=== PATIENT | female | born 1970 | race Hispanic/Latino ===

== ENCOUNTER → 2019-11-25 | Outpatient (CLI) | payer OTHER | END | disposition home or self-care (01) | LOC: RAH 12:00 | PROVIDERS: ATTEND Nurse Practitioner Adult Health | DX: M79.605 Pain in left leg (principal); R22.42 Localized swelling, mass and lump, left lower limb | CPT/HCPCS: 93971 ==

== ENCOUNTER → 2021-07-09 | Outpatient (CLI) | payer OTHER | END | disposition home or self-care (01) | LOC: OIH 13:52 | PROVIDERS: ATTEND Nurse Practitioner Adult Health | DX: Z13.6 Encounter for screening for cardiovascular disorders (principal) | CPT/HCPCS: 75571 ==

== ENCOUNTER 2021-07-16 05:39 | Day surgery (SDC) | payer OTHER ==
[2021-07-12 10:34] LABS: BASOPHILS % (AUTO) 0.8 % (0.0-5.0); LYMPHOCYTES % (AUTO) 25.9 % (21.0-51.0); MEAN CORPUSCULAR HEMOGLOBIN 29.5 pg (27.0-33.0); MEAN CORPUSCULAR HGB CONC 32.4 g/dL (32.0-36.0); MEAN CORPUSCULAR VOLUME 91.1 fL (79-99); MONOCYTES % (AUTO) 5.5 % (3.0-13.0); NEUTROPHILS % (AUTO) 55.5 % (40.0-77.0); PLATELET COUNT (AUTO) 223 K/uL (130-400); RED BLOOD CELL COUNT(AUTO) 4.17 MIL/uL (4.00-5.50); RED CELL DISTRIBUTION WIDTH 12.9 % (11.0-15.5); WHITE BLOOD COUNT (AUTO) 9.2 K/uL (4.8-10.8)
[2021-07-12 10:36] LABS: APPEARANCE,URINE Cloudy (CLEAR); BILIRUBIN,URINE Negative (NEGATIVE); COLOR,URINE Yellow (YELLOW); GLUCOSE, URINE (UA) >=1000 mg/dL (NEGATIVE); KETONES,URINE Negative (NEGATIVE); LEUKOCYTE ESTERASE ,URINE Moderate (NEGATIVE); NITRATE,URINE Negative (NEGATIVE); OCCULT BLOOD,URINE Negative (NEGATIVE); PROTEIN,URINE Negative (NEGATIVE); UROBILINOGEN,URINE 0.2 mg/dL (0.2-1.0)
[2021-07-12 10:46] LABS: CREATININE 0.9 mg/dL (0.5-1.5); POTASSIUM 4.2 mmol/L (3.5-5.1)
[2021-07-12 10:47] LABS: INR 1.04 (0.85-1.15); PROTHROMBIN TIME 11.3 SEC (9.6-11.6)
[2021-07-12 10:48] LABS: PARTIAL THROMBOPLASTIN TIME 26.8 SEC (26.3-35.5)
[2021-07-12 11:07] LABS: BACTERIA,URINE Many /HPF (None Seen); RBC,URINE None Seen /HPF (0-1); SQUAMOUS EPITHELIAL CELL,UR 0-2 /HPF (0-2)
[2021-07-13 10:10] VITALS: BP 114/66
[2021-07-16] VITALS (12 sets, daily range): BP systolic 94–118; BP diastolic 52–83
[~2021-07-16] VITALS: Ht 162.6 cm; Wt 82.5 kg
[~2021-07-16 05:39] MED LIST: AMLO-257 PO; ATOR20TA65 PO; CARV12.511 PO; CLOP75TA32 PO; EMPA1TAB7 PO; ERGO500093 PO; GLIM2TAB30 PO; LEVO100C4 PO; LISI40TA9 PO; MONT-39 PO; NITR0.4T50 SL; OMEP20CA12 PO; SITA100T12 PO
[2021-07-16] MEDS ORDERED: 0.9%NACL 1000ML 1,000 ML IV ONE (06:18)
[2021-07-16] MEDS ORDERED: HEPARIN 10,000 UNIT/10ML (1,000 UNIT/ML) VIAL ONE (07:31)
[2021-07-16] MEDS ORDERED: NITROGLYCERIN 2 MG VIAL IV ONE (07:32)
[2021-07-16] MEDS ORDERED: IOHEXOL-350 50ML VIAL IV ONE (07:32)
[2021-07-16] MEDS ORDERED: IOHEXOL 350 MG/ML 100ML INFUS..BTL IV ONE ×3 (07:32→10:51)
[2021-07-16] MEDS ORDERED: LIDOCAINE HCL 400MG/20ML VIAL ONE (07:33)
[2021-07-16] MEDS ORDERED: SOLU-MEDROL 125MG VIAL ONE (07:55)
[2021-07-16] MEDS ORDERED: DiphenhydrAMINE HCL 50 MG/ML VIAL ONE (07:55)
[2021-07-16] MEDS ORDERED: FAMOTIDINE 20MG TAB ONE (07:59)
[2021-07-16] MEDS ORDERED: 0.9%NACL 1000ML 1,000 ML IV SCH ×2 (08:00→12:00)
[2021-07-16] MEDS ORDERED: FENTANYL CITRATE PF 50 MCG/1 ML 2ML VIAL ONE (08:28)
[2021-07-16] MEDS ORDERED: MIDAZOLAM HCL 1 MG/ML 2ML VIAL ONE (08:28)
[2021-07-16] MEDS ORDERED: FAMOTIDINE 20MG VIAL IV SCH (09:00)
[2021-07-16] MEDS ORDERED: DiphenhydrAMINE HCL 50 MG/ML VIAL IVP SCH (09:00)
[2021-07-16] MEDS ORDERED: SOLU-MEDROL 125MG VIAL IVP SCH (09:00)
[2021-07-16] MEDS ORDERED: BIVALIRUDIN 250 MG/VIAL IV ONE ×2 (09:30→10:50)
[2021-07-16] MEDS ORDERED: EPTIFIBATIDE 75MG/100ML BOTTLE 100 ML IV ONE (09:42)
[2021-07-16] MEDS ORDERED: EPTIFIBATIDE 2 MG/ML 10 ML VIAL IVP ONE ×2 (09:42→10:03)
[2021-07-16] MEDS ORDERED: PRASUGREL HCL 10 MG TABLET ONE (09:46)
[2021-07-16] MEDS ORDERED: PHARMACY COMMUNICATION MISC SCH (10:00)
[2021-07-16] MEDS ORDERED: CILOSTAZOL 100 MG TAB PO SCH (10:30)
[2021-07-16] MEDS ORDERED: DEXTROSE 50%-WATER 50 ML DISP.SYRIN IV PRN (12:00)
[2021-07-16] MEDS ORDERED: SULFAMETHOX-TMP DS 800/160 TAB PO SCH (12:00)
[2021-07-16] MEDS ORDERED: INSULIN HUMULIN R 100 UNIT/ML 3ML SQ SCH (16:30)
== END 2021-07-16 18:05 | disposition home or self-care (01) ==
LOC: DAH 05:39
PROVIDERS: ATTEND Internal Medicine Cardiovascular Disease
DX: I25.119 Atherosclerotic heart disease of native coronary artery with unspecified angina pectoris (principal); I25.82 Chronic total occlusion of coronary artery; R94.31 Abnormal electrocardiogram [ECG] [EKG]; I10 Essential (primary) hypertension; E78.2 Mixed hyperlipidemia; E11.9 Type 2 diabetes mellitus without complications; E03.9 Hypothyroidism, unspecified; Z98.890 Other specified postprocedural states; Z90.49 Acquired absence of other specified parts of digestive tract; Z83.3 Family history of diabetes mellitus; Z82.49 Family history of ischemic heart disease and other diseases of the circulatory system; Z80.9 Family history of malignant neoplasm, unspecified; Z79.899 Other long term (current) drug therapy; Z79.01 Long term (current) use of anticoagulants; Z79.84 Long term (current) use of oral hypoglycemic drugs
CPT/HCPCS: 36415; 71045; 80048; 81001; 82948 ×3; 85025; 85610; 85730; 87077; 87088; 87186; 92920; 93005; 93458; A4215; A4216; A4221; A4222; A4223 ×3; A4606; A4663; C1725 ×3; C1760; C1769 ×2; C1874; C1887 ×3; C1894 ×2; C9600; J0583 ×2; J1200; J1327 ×3; J1644 ×2; J2250; J2930; J3010; J3490 ×3; J7030; Q9965 ×3; Q9967 ×4; 99156; 99157

== ENCOUNTER 2021-08-30 12:30 | Observation (INO) | payer OTHER ==
[~2021-08-30] VITALS: Ht 157.5 cm; Wt 78.6 kg
[~2021-08-30 12:30] MED LIST changes: -CLOP75TA32 PO
[2021-08-30 13:00] LABS: BASOPHILS % (AUTO) 0.5 % (0.0-5.0); EOSINOPHILS % (AUTO) 3.8 % (0.0-8.0); HEMATOCRIT 41.3 % (36-48); LYMPHOCYTES % (AUTO) 21.6 % (21.0-51.0); MEAN CORPUSCULAR HEMOGLOBIN 29.1 pg (27.0-33.0); MEAN CORPUSCULAR HGB CONC 31.2 g/dL (32.0-36.0); MEAN CORPUSCULAR VOLUME 93.2 fL (79-99); MONOCYTES % (AUTO) 4.4 % (3.0-13.0); NEUTROPHILS % (AUTO) 69.4 % (40.0-77.0); PLATELET COUNT (AUTO) 296 K/uL (130-400); RED BLOOD CELL COUNT(AUTO) 4.43 MIL/uL (4.00-5.50)
[2021-08-30 13:11] LABS: CREATININE 1.1 mg/dL (0.5-1.5); POTASSIUM 4.6 mmol/L (3.5-5.1)
[2021-08-30 13:18] LABS: ALBUMIN 3.8 g/dL (3.5-5.0); BILIRUBIN,TOTAL 0.3 mg/dL (0.2-1.0)
[2021-08-30 14:18] LABS: APPEARANCE,URINE Clear (CLEAR); BILIRUBIN,URINE Negative (NEGATIVE); COLOR,URINE Yellow (YELLOW); GLUCOSE, URINE (UA) >=1000 mg/dL (NEGATIVE); KETONES,URINE Negative (NEGATIVE); LEUKOCYTE ESTERASE ,URINE Negative (NEGATIVE); NITRATE,URINE Positive (NEGATIVE); OCCULT BLOOD,URINE Negative (NEGATIVE); PH,URINE 5.5 (5.0-8.0); PROTEIN,URINE Negative (NEGATIVE); UROBILINOGEN,URINE 0.2 mg/dL (0.2-1.0)
[2021-08-30 14:24] LABS: RBC,URINE 0-1 /HPF (0-1)
[2021-08-30 14:25] LABS: BACTERIA,URINE Few /HPF (None Seen); SQUAMOUS EPITHELIAL CELL,UR Rare /HPF (0-2)
[2021-08-30] MEDS ORDERED: CLOP75TA32 PO (14:54)
[2021-08-30] MEDS ORDERED: LEVO750T46 PO (14:54)
[2021-08-30] MEDS ORDERED: ALBU1.252 IH (14:55)
[2021-08-30] MEDS ORDERED: IBUP-2077 PO (14:56)
[2021-08-30] MEDS ORDERED: LEVO100T12 PO (14:57)
[2021-08-30] MEDS ORDERED: LISI40TA9 PO (14:57)
[2021-08-30] MEDS ORDERED: LORA10TA7 PO (14:58)
[2021-08-30] MEDS ORDERED: SITA100T12 PO (14:58)
[2021-08-30] MEDS ORDERED: ACETAMINOPHEN 325 MG TAB PO PRN ×2 (15:00)
[2021-08-30] MEDS ORDERED: HYDRALAZINE 20MG/ML VIAL IV PRN (15:00)
[2021-08-30] MEDS ORDERED: ONDANSETRON 4MG INJ IV PRN (15:00)
[2021-08-30] MEDS ORDERED: ALBUTEROL 0.042% 1.25MG/3ML IH SCH (15:30)
[2021-08-30 16:00] LABS: HEMOGLOBIN A1C 7.1 % (4.0-6.0)
[2021-08-30] MEDS: INSULIN HUMULIN R 100 UNIT/ML 3ML SQ SCH ×2 (16:30→22:00)
[2021-08-30] MEDS: FAMOTIDINE 20MG VIAL IV SCH (21:00)
[2021-08-30] MEDS: MONTELUKAST SODIUM 10 MG TAB PO SCH (21:00)
[2021-08-30] MEDS: CARVEDILOL 12.5 MG TABLET PO SCH (21:00)
[2021-08-30] MEDS: ATORVASTATIN 20 MG TABLET PO SCH (21:00)
[2021-08-31] VITALS (10 sets, daily range): BP systolic 125–141; BP diastolic 69–91
[2021-08-31 03:21] LABS: CHOLESTEROL 109 mg/dL (<200); HDL CHOLESTEROL 41 mg/dL (35-85); LDL DIRECT 56 mg/dL (0-99); TRIGLYCERIDES 101 mg/dL (30-200)
[2021-08-31] MEDS: INSULIN HUMULIN R 100 UNIT/ML 3ML SQ SCH ×4 (05:36→20:49)
[2021-08-31] MEDS: LEVOTHYROXINE 100 MCG TABLET PO SCH (06:03)
[2021-08-31] MEDS: ENOXAPARIN SODIUM 40 MG/0.4 ML SYRINGE SQ SCH (09:00)
[2021-08-31] MEDS ORDERED: CLOPIDOGREL 75MG TAB PO SCH (09:00)
[2021-08-31] MEDS: CARVEDILOL 12.5 MG TABLET PO SCH ×2 (11:46→20:24)
[2021-08-31] MEDS: FAMOTIDINE 20MG VIAL IV SCH ×2 (11:46→20:17)
[2021-08-31] MEDS: LISINOPRIL 40 MG TABLET PO SCH (11:47)
[2021-08-31] MEDS: DiphenhydrAMINE HCL 50 MG/ML VIAL IVP SCH (15:30)
[2021-08-31] MEDS: SOLU-MEDROL 125MG VIAL IVP SCH ×2 (15:30→17:24)
[2021-08-31 16:01] LABS: INR 1.09 (0.85-1.15); PROTHROMBIN TIME 11.8 SEC (9.6-11.6)
[2021-08-31 16:02] LABS: PARTIAL THROMBOPLASTIN TIME 26.5 SEC (26.3-35.5)
[2021-08-31] MEDS ORDERED: IOHEXOL-350 50ML VIAL IV ONE (16:14)
[2021-08-31] MEDS ORDERED: NITROGLYCERIN 2 MG VIAL IV ONE (16:14)
[2021-08-31] MEDS ORDERED: IOHEXOL 350 MG/ML 100ML INFUS..BTL IV ONE (16:14)
[2021-08-31] MEDS ORDERED: LIDOCAINE HCL 400MG/20ML VIAL ONE (16:14)
[2021-08-31] MEDS ORDERED: BIVALIRUDIN 250 MG/VIAL IV ONE (16:42)
[2021-08-31] MEDS ORDERED: FENTANYL CITRATE PF 50 MCG/1 ML 2ML VIAL ONE (17:01)
[2021-08-31] MEDS ORDERED: MIDAZOLAM HCL 1 MG/ML 2ML VIAL ONE (17:01)
[2021-08-31] MEDS ORDERED: TICAGRELOR 90 MG TABLET ONE (17:18)
[2021-08-31] MEDS ORDERED: 0.9%NACL 1000ML 1,000 ML IV SCH (18:00)
[2021-08-31] MEDS: MONTELUKAST SODIUM 10 MG TAB PO SCH (20:17)
[2021-08-31] MEDS: ATORVASTATIN 20 MG TABLET PO SCH (20:17)
[2021-08-31] MEDS: TICAGRELOR 90 MG TABLET PO SCH (20:25)
[2021-09-01 03:48] VITALS: BP 137/83
[2021-09-01] MEDS: LEVOTHYROXINE 100 MCG TABLET PO SCH (06:34)
[2021-09-01] MEDS: INSULIN HUMULIN R 100 UNIT/ML 3ML SQ SCH (07:30)
[2021-09-01 08:06] VITALS: BP 139/91
[2021-09-01] MEDS: FAMOTIDINE 20MG VIAL IV SCH (09:45)
[2021-09-01] MEDS: LISINOPRIL 40 MG TABLET PO SCH (09:45)
[2021-09-01] MEDS: CARVEDILOL 12.5 MG TABLET PO SCH (09:46)
[2021-09-01] MEDS: TICAGRELOR 90 MG TABLET PO SCH (09:46)
[2021-09-01] MEDS: ENOXAPARIN SODIUM 40 MG/0.4 ML SYRINGE SQ SCH (09:47)
[2021-09-01 10:04] LABS: BASOPHILS % (AUTO) 0.2 % (0.0-5.0); EOSINOPHILS % (AUTO) 2.7 % (0.0-8.0); HEMATOCRIT 38.4 % (36-48); LYMPHOCYTES % (AUTO) 9.7 % (21.0-51.0); MEAN CORPUSCULAR HEMOGLOBIN 29.1 pg (27.0-33.0); MEAN CORPUSCULAR HGB CONC 32.6 g/dL (32.0-36.0); MEAN CORPUSCULAR VOLUME 89.3 fL (79-99); MONOCYTES % (AUTO) 5.5 % (3.0-13.0); NEUTROPHILS % (AUTO) 81.5 % (40.0-77.0); PLATELET COUNT (AUTO) 261 K/uL (130-400); WHITE BLOOD COUNT (AUTO) 11.2 K/uL (4.8-10.8)
[2021-09-01 10:11] LABS: CREATININE 1.1 mg/dL (0.5-1.5); POTASSIUM 4.2 mmol/L (3.5-5.1)
[2021-09-01 10:37] VITALS: BP 129/76
[2021-09-01] MEDS ORDERED: NITR100C4 PO (11:39)
[2021-09-01] MEDS ORDERED: ATOR40TA71 PO (11:47)
[2021-09-01] MEDS ORDERED: TICA90TA PO (11:47)
[2021-09-01] MEDS ORDERED: NITROFURANTOIN MONOHYD/M-CRYST 100 MG CAPSULE PO SCH (12:00)
[2021-09-01] MEDS: DiphenhydrAMINE HCL 50 MG/ML VIAL IVP SCH (12:30)
== END 2021-09-01 14:00 | disposition home or self-care (01) ==
LOC: EDH 12:30 → INTOOBSV 14:58 → EDHIP 14:58 → 4AH 08-31 02:41
PROVIDERS: ADMIT Internal Medicine; ATTEND Internal Medicine
DX: R07.89 Other chest pain (principal); Z20.822 Contact with and (suspected) exposure to COVID-19; I25.10 Atherosclerotic heart disease of native coronary artery without angina pectoris; I10 Essential (primary) hypertension; E11.9 Type 2 diabetes mellitus without complications; E03.9 Hypothyroidism, unspecified; E78.2 Mixed hyperlipidemia; E66.9 Obesity, unspecified; I25.119 Atherosclerotic heart disease of native coronary artery with unspecified angina pectoris; I25.82 Chronic total occlusion of coronary artery; J45.909 Unspecified asthma, uncomplicated; Z68.30 Body mass index [BMI] 30.0-30.9, adult; Z88.0 Allergy status to penicillin; Z88.6 Allergy status to analgesic agent; Z98.61 Coronary angioplasty status; Z79.899 Other long term (current) drug therapy; Z98.890 Other specified postprocedural states
CPT/HCPCS: 36415 ×3; 71045; 80048; 80053; 80061; 81001; 82948 ×8; 83036; 84145; 84443; 84484 ×5; 85025 ×2; 85610; 85730; 87077; 87088; 87186; 87635; 93005 ×2; 93458; 94664; 96372 ×2; 96374; 96375; 96376 ×2; 99285; C1760; C1894 ×2; G0378 ×24; J1200 ×2; J1644; J1650; J2250; J2930; J3010; J3490 ×6; Q9965 ×2; Q9967 ×2; 99156; 99157; J0583

== ENCOUNTER 2023-01-01 08:03 | Emergency (ER) | payer OTHER ==
[~2023-01-01] VITALS: Ht 162.6 cm; Wt 77.1 kg
[~2023-01-01 08:03] MED LIST changes: +ALBU1.252 IH; -ATOR20TA65 PO; +ATOR40TA71 PO; +LEVO100T12 PO; +LORA10TA7 PO; +NITR100C4 PO; +TICA90TA PO
[2023-01-01 08:35] LABS: BASOPHILS % (AUTO) 0.7 % (0.0-5.0); EOSINOPHILS % (AUTO) 9.2 % (0.0-8.0); HEMATOCRIT 38.9 % (36-48); LYMPHOCYTES % (AUTO) 27.5 % (21.0-51.0); MEAN CORPUSCULAR HEMOGLOBIN 28.3 pg (27.0-33.0); MEAN CORPUSCULAR HGB CONC 31.1 g/dL (32.0-36.0); MEAN CORPUSCULAR VOLUME 90.9 fL (79-99); MONOCYTES % (AUTO) 5.8 % (3.0-13.0); NEUTROPHILS % (AUTO) 56.6 % (40.0-77.0); PLATELET COUNT (AUTO) 248 K/uL (130-400); RED BLOOD CELL COUNT(AUTO) 4.28 MIL/uL (4.00-5.50); RED CELL DISTRIBUTION WIDTH 12.7 % (11.0-15.5); WHITE BLOOD COUNT (AUTO) 8.9 K/uL (4.8-10.8)
[2023-01-01 08:50] LABS: POTASSIUM 3.9 mmol/L (3.5-5.1)
[2023-01-01 08:52] LABS: TOTAL PROTEIN, SERUM 8.1 g/dL (6.0-8.3)
[2023-01-01 08:58] LABS: APPEARANCE,URINE CLEAR (CLEAR); BILIRUBIN,URINE NEGATIVE (NEGATIVE); COLOR,URINE LIGHT-YELLOW (YELLOW); GLUCOSE, URINE (UA) >=1000 mg/dL (NEGATIVE); KETONES,URINE NEGATIVE (NEGATIVE); LEUKOCYTE ESTERASE ,URINE 250 Leu/uL (NEGATIVE); NITRATE,URINE NEGATIVE (NEGATIVE); OCCULT BLOOD,URINE NEGATIVE (NEGATIVE); PH,URINE 6.5 (5.0-8.0); PROTEIN,URINE NEGATIVE (NEGATIVE); UROBILINOGEN,URINE 0.2 mg/dL (0.2-1.0)
[2023-01-01 09:00] LABS: BACTERIA,URINE RARE /HPF (None Seen); MUCUS,URINE RARE LPF (None Seen); RBC,URINE 0-1 /HPF (0-1); SQUAMOUS EPITHELIAL CELL,UR RARE /HPF (0-2)
[2023-01-01] MEDS ORDERED: IOHEXOL-350 75 ML VIAL IV ONE (11:36)
[2023-01-01] MEDS ORDERED: SULF1TAB42 PO (13:11)
[2023-01-01] MEDS ORDERED: PANT40GR PO (13:11)
[2023-01-01 13:40] VITALS: BP 150/83
== END 2023-01-01 13:43 | disposition home or self-care (01) ==
LOC: EDH 08:03
DX: N39.0 Urinary tract infection, site not specified (principal); E11.9 Type 2 diabetes mellitus without complications; E78.00 Pure hypercholesterolemia, unspecified; I10 Essential (primary) hypertension; E03.9 Hypothyroidism, unspecified; Z79.84 Long term (current) use of oral hypoglycemic drugs; Z79.899 Other long term (current) drug therapy; Z82.49 Family history of ischemic heart disease and other diseases of the circulatory system; Z88.0 Allergy status to penicillin; Z88.6 Allergy status to analgesic agent
CPT/HCPCS: 99285; 74177; 84484; 80053; 85025; 81001; 36415; 93005; Q9967

== ENCOUNTER 2023-02-23 14:21 | Emergency (ER) | payer OTHER, BC ==
[~2023-02-23] VITALS: Ht 162.6 cm; Wt 77.1 kg
[~2023-02-23 14:21] MED LIST changes: +PANT40GR PO; +SULF1TAB42 PO
[2023-02-23 14:44] LABS: BASOPHILS % (AUTO) 1.1 % (0.0-5.0); EOSINOPHILS % (AUTO) 8.1 % (0.0-8.0); HEMATOCRIT 39.1 % (36-48); LYMPHOCYTES % (AUTO) 30.9 % (21.0-51.0); MEAN CORPUSCULAR HEMOGLOBIN 27.3 pg (27.0-33.0); MEAN CORPUSCULAR HGB CONC 30.7 g/dL (32.0-36.0); MEAN CORPUSCULAR VOLUME 88.9 fL (79-99); MONOCYTES % (AUTO) 4.7 % (3.0-13.0); NEUTROPHILS % (AUTO) 54.9 % (40.0-77.0); PLATELET COUNT (AUTO) 235 K/uL (130-400); RED CELL DISTRIBUTION WIDTH 13.5 % (11.0-15.5)
[2023-02-23 14:58] LABS: CREATININE 1.1 mg/dL (0.5-1.5); POTASSIUM 4.4 mmol/L (3.5-5.1)
[2023-02-23 15:07] LABS: ALBUMIN 4.1 g/dL (3.5-5.0); TOTAL PROTEIN, SERUM 7.9 g/dL (6.0-8.3)
[2023-02-23 17:44] VITALS: BP 132/68
== END 2023-02-23 17:45 | disposition home or self-care (01) ==
LOC: EDH 14:21
DX: R07.89 Other chest pain (principal); I10 Essential (primary) hypertension; E03.9 Hypothyroidism, unspecified; E11.9 Type 2 diabetes mellitus without complications; E78.00 Pure hypercholesterolemia, unspecified; Z79.84 Long term (current) use of oral hypoglycemic drugs; Z79.899 Other long term (current) drug therapy; Z95.5 Presence of coronary angioplasty implant and graft; Z88.0 Allergy status to penicillin; Z88.6 Allergy status to analgesic agent; Z88.8 Allergy status to other drugs, medicaments and biological substances
CPT/HCPCS: 36415; 71045; 80053; 84484; 85025; 93005

== ENCOUNTER 2023-11-23 20:59 | Emergency (ER) | payer BC, OTHER ==
[~2023-11-23] VITALS: Ht 162.6 cm; Wt 75.7 kg
[2023-11-23 23:04] LABS: RAPID GROUP A STREP negative (NEGATIVE)
[2023-11-23 23:10] LABS: SARS-CoV-2, RNA, NAAT NEGATIVE SARS CoV-2 (NEGATIVE)
[2023-11-23 23:14] LABS: INFLUENZA TYPE A Negative For Type A (NEGATIVE); INFLUENZA TYPE B Negative For Type B (NEGATIVE)
[2023-11-23 23:55] LABS: ALBUMIN 3.8 g/dL (3.5-5.0); BASOPHILS # (AUTO) 0.08 K/uL (0.00-0.20); BASOPHILS % (AUTO) 0.8 % (0.0-5.0); BILIRUBIN,TOTAL 0.3 mg/dL (0.2-1.0); CREATININE 1.4 mg/dL (0.5-1.5); EOSINOPHILS % (AUTO) 5.3 % (0.0-8.0); HEMATOCRIT 35.8 % (36-48); IMMATURE GRANULOCYTE ABSOLUTE 0.03 K/uL (0-1); LYMPHOCYTES # (AUTO) 2.5 K/uL (1.0-4.8); LYMPHOCYTES % (AUTO) 26.7 % (21.0-51.0); MEAN CORPUSCULAR HEMOGLOBIN 28.5 pg (27.0-33.0); MEAN CORPUSCULAR HGB CONC 32.7 g/dL (32.0-36.0); MEAN CORPUSCULAR VOLUME 87.1 fL (79-99); MONOCYTES # (AUTO) 0.7 K/uL (0.1-1.0); MONOCYTES % (AUTO) 7.7 % (3.0-13.0); NEUTROPHILS # (AUTO) 5.6 K/uL (1.8-7.7); NEUTROPHILS % (AUTO) 59.2 % (40.0-77.0); PLATELET COUNT (AUTO) 305 K/uL (130-400); POTASSIUM 3.9 mmol/L (3.5-5.1); RED BLOOD CELL COUNT(AUTO) 4.11 MIL/uL (4.00-5.50); RED CELL DISTRIBUTION WIDTH 14.1 % (11.0-15.5); TOTAL PROTEIN, SERUM 7.3 g/dL (6.0-8.3); WHITE BLOOD COUNT (AUTO) 9.5 K/uL (4.8-10.8)
[2023-11-24] MEDS: 0.9%NACL 1000ML 1,000 ML IV SCH (00:01)
[2023-11-24] MEDS: FAMOTIDINE 20MG VIAL IV ONE (00:01)
[2023-11-24] MEDS: ONDANSETRON 4MG INJ IVP ONE (00:01)
[2023-11-24] MEDS: DEXTROSE 50%-WATER 50 ML DISP.SYRIN IV ONE (00:06)
[2023-11-24] MEDS ORDERED: IOHEXOL-350 75 ML VIAL IV ONE (00:48)
[2023-11-24 01:16] VITALS: BP 127/96; PULSE 80; RESP 18; O2SAT 99
[2023-11-24] MEDS ORDERED: ACET-66 PO (01:29)
[2023-11-24] MEDS ORDERED: LACT1CAP81 PO (01:29)
[2023-11-24] MEDS ORDERED: ONDA4TAB10 SL (01:29)
[2023-11-24] MEDS ORDERED: FAMO-136 PO (01:29)
== END 2023-11-24 01:44 | disposition home or self-care (01) ==
LOC: EDH 20:59
DX: K52.9 Noninfective gastroenteritis and colitis, unspecified (principal); I10 Essential (primary) hypertension; E11.9 Type 2 diabetes mellitus without complications; E78.00 Pure hypercholesterolemia, unspecified; Z20.822 Contact with and (suspected) exposure to COVID-19; Z79.899 Other long term (current) drug therapy; Z98.890 Other specified postprocedural states; Z90.710 Acquired absence of both cervix and uterus; Z88.0 Allergy status to penicillin; Z88.2 Allergy status to sulfonamides; Z88.5 Allergy status to narcotic agent; Z88.8 Allergy status to other drugs, medicaments and biological substances
CPT/HCPCS: 99284; 74177; 87635; 84484; 80053; 83690; 85025; 87880; 87804 ×2; 82948; 36415; 93005; 96374; 96375; J3490; J2405; J7070; Q9967

== ENCOUNTER 2024-02-28 13:46 | Emergency (ER) | payer BC, OTHER ==
[~2024-02-28] VITALS: Ht 162.6 cm; Wt 72.6 kg
[~2024-02-28 13:46] MED LIST changes: +ACET-66 PO; +FAMO-136 PO; +LACT1CAP81 PO; +ONDA-243 SL
[2024-02-28] MEDS: 0.9%NACL 1000ML 1,000 ML IV ONE (14:35)
[2024-02-28] MEDS: SOLU-MEDROL 125MG VIAL IVP ONE (14:35)
[2024-02-28] MEDS: DiphenhydrAMINE HCL 50 MG/ML VIAL IV ONE (14:35)
[2024-02-28] MEDS: FAMOTIDINE 20MG VIAL IV ONE (14:35)
[2024-02-28] MEDS ORDERED: DIPH50 PO (16:15)
[2024-02-28 16:36] VITALS: BP 131/61; PULSE 72; RESP 20; O2SAT 99
== END 2024-02-28 16:36 | disposition home or self-care (01) ==
LOC: EDH 13:46
DX: T78.40XA Allergy, unspecified, initial encounter (principal); E11.9 Type 2 diabetes mellitus without complications; E78.00 Pure hypercholesterolemia, unspecified; I10 Essential (primary) hypertension; E03.9 Hypothyroidism, unspecified; Z90.49 Acquired absence of other specified parts of digestive tract; X58.XXXA Exposure to other specified factors, initial encounter
CPT/HCPCS: 99284; 96374; 96375; J1200; J3490; J7030; J2919

== ENCOUNTER → 2024-06-21 | Outpatient (CLI) | payer OTHER ==
[~2024-06-21] MED LIST changes: +DIPH50 PO
[2024-06-21 12:22] LABS: POTASSIUM 4.3 mmol/L (3.5-5.1)
== END | disposition home or self-care (01) ==
LOC: LAB 09:11
PROVIDERS: ATTEND Internal Medicine Cardiovascular Disease
DX: E78.5 Hyperlipidemia, unspecified (principal)
CPT/HCPCS: 36415; 80048; 80061

== ENCOUNTER 2024-08-11 10:49 | Emergency (ER) | payer OTHER ==
[~2024-08-11] VITALS: Ht 160 cm; Wt 68.0 kg
--- NOTE | 2024-08-11 11:16 | ERN ---
General Chief Complaint: Chest Pain Stated Complaint: CHEST PAIN Time Seen by MD: 10:50 Time Seen by Midlevel: 10:50 Source: patient History of Present Illness Initial Comments 54-year-old female presents to the ED due to chest pain onset three days. She was referred by PCP. Patient reports pain comes and goes, has shortness of breat h when the pain occurs. Denies any fever, cough, chest injuries or further associated symptoms. Patient has history of stent placement, DM, HTN. 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 Allergies: Coded Allergies: Penicillins (Unverified Allergy, Unknown, 07/13/21) aspirin (Verified Allergy, Unknown, 07/12/21) coconut (Unverified Allergy, Unknown, 07/13/21) shrimp (Unverified Allergy, Unknown, 07/13/21) Home Meds Active Scripts Nitrofurantoin Macrocrystal (Nitrofurantoin) 100 Mg Capsule, 100 MG PO BID for 7 Days, #14 CAP Prov:JOSE ANTONIO TERRY 08/11/24 Diphenhydramine HCl (Benadryl) 50 Mg Cap, 25 MG PO TID PRN for ALLERGIC REACTION for 10 Days, #30 CAP 0 Refills Prov:FABIO ALAMO MD 02/28/24 Lactobacillus Combination No.4 (Probiotic) 3 Billion Cell Capsule, 1 EACH PO DAILY, #14 CAP Prov:DARLIN FREED MD 11/24/23 Famotidine (Pepcid) 20 Mg Tablet, 20 MG PO Q12H, #28 TAB Prov:DARLIN FREED MD 11/24/23 Ondansetron (Ondansetron Odt) 4 Mg Tab.rapdis, 4 MG SL Q4HPRN PRN for nausea/vomiting, #10 TAB Prov:DARLIN FREED MD 11/24/23 Acetaminophen (Acetaminophen) 500 Mg Tablet, 1000 MG PO Q6HPRN PRN for fever/pain, #24 TAB Prov:DARLIN FREED MD 11/24/23 Sulfamethoxazole/Trimethoprim (Bactrim Ds Tablet) 1 Each Tablet, 1 TAB PO BID for 5 Days, #10 TAB 0 Refills Prov:CHELSEA MONTENEGRO MD 01/01/23 Pantoprazole Sodium (Pantoprazole Sodium) 40 Mg , 40 MG PO DAILYBKFST, #15 PACK Prov:CHELSEA MONTENEGRO MD 01/01/23 Atorvastatin Calcium (Atorvastatin Calcium) 40 Mg Tablet, 40 MG PO HS, #30 TAB 1 Refill Prov:GALINDO RHODES MD 09/01/21 Ticagrelor (Brilinta) 90 Mg Tablet, 90 MG PO BID, #60 TAB 2 Refills Prov:GALINDO RHODES MD 09/01/21 Nitrofurantoin Monohyd/M-Cryst (Macrobid 100 mg Capsule) 100 Mg Capsule, 100 MG PO BID for 5 Days, #10 CAP 0 Refills Prov:GALINDO RHODES MD 09/01/21 Reported Medications Loratadine (Loratadine) 10 Mg Tablet, 10 MG PO DAILY, TAB 08/30/21 Sitagliptin Phosphate (Januvia) 100 Mg Tablet, 100 MG PO DAILY, TAB 08/30/21 Lisinopril (Lisinopril) 40 Mg Tablet, 40 MG PO DAILY, TAB 08/30/21 Levothyroxine Sodium (Levothyroxine Sodium) 100 Mcg Tablet, 100 MCG PO DAILY, TAB 08/30/21 Albuterol Sulfate (Albuterol Sulfate) 1.25 Mg/3 Ml Vial.neb, 108 MCG IH Q4PRN, INH 08/30/21 Empagliflozin/Metformin HCl (Synjardy 12.5-1,000 mg Tablet) 1 Each Tablet, 1 EACH PO BID, TAB 07/13/21 Nitroglycerin (Nitroglycerin) 0.4 Mg Tab.subl, 0.4 MG SL AD PRN for CHEST PAIN, TAB.SL 07/13/21 Amlodipine Besylate (Amlodipine Besylate) 5 Mg Tablet, 5 MG PO DAILY, TAB 07/13/21 Levothyroxine Sodium (Levothyroxine) 100 Mcg Capsule, 100 MCG PO DAILY, CAP 07/13/21 Ergocalciferol (Vitamin D2) (Vitamin D2) 1,250 Mcg Capsule, 1250 MCG PO QWEEK, CAP 07/13/21 Sitagliptin Phosphate (Januvia) 100 Mg Tablet, 100 MG PO DAILY, TAB 07/13/21 Carvedilol (Carvedilol) 12.5 Mg Tablet, 12.5 MG PO BID, TAB 07/13/21 Montelukast Sodium (Montelukast Sodium) 10 Mg Tablet, 10 MG PO HS, TAB 07/13/21 Glimepiride (Glimepiride) 2 Mg Tablet, 2 MG PO BID, TAB 07/13/21 Lisinopril (Lisinopril) 40 Mg Tablet, 40 MG PO DAILY, TAB 07/13/21 Omeprazole (Omeprazole) 20 Mg Capsule.dr, 20 MG PO AD PRN for HEARTBURN, CAP 07/13/21 Past Medical History Past Medical History: Diabetes-Type II, High Cholesterol, Hypertension, Hypothyroid Past Surgical History: Hysterectomy Surgical History Other: HEART STENT Family History Family History: HTN Social History Social History: Negative, Lives with family Female( History) History: Not Applicable ROS Dictation Constitutional: Negative for fever,chills, and weight loss Eyes: Negative for injury, pain,redness, and discharge ENT: Negative for injury,pain or swelling Cardiovascular: Positive for chest pain Negative for palpitations, and edema Respiratory: Positive for shortness of breath Negative for cough, and wheezing, Abdomen/GI: Negative for abdominal pain, nausea, vomiting, diarrhea, and constipation Back: Negative for injury and pain : Negative for painful urination, bleeding or discharge MS/Extremity: Negative for injury and deformity Skin: Negative for rash, and discoloration Neuro: Negative for headache, weakness, numbness, tingling, and seizure Psych: Negative for suicide ideation, homicidal ideation, and hallucinations Physical Exam Physical Exam Dictation General: awake, alert, no acute distress Head/Face: Normocephalic, atraumatic Eyes: PERRL, EOMI, normal conjunctiva ENT: oral cavity clear, oral mucosa moist Neck: Normal range of motion Cardiovascular: RRR, normal S1/S2 Respiratory: CTAB, no respiratory distress, no rales or wheezes Abdomen: Soft, non-tender, non-distended, no guarding or rebound. Skin: Warm, dry, normal turgor, no rash MS/Extremity: Pulses equal, no cyanosis, neurovascular intact, FROM Neuro: COAx4, GCS 15, no neurological deficits, normal gait, Psych: Normal behavior, mood, and affect normal Results Laboratory and Microbiology Lab and Micro Result Laboratory Tests Test 08/11/24 11:08 08/11/24 11:30 08/11/24 12:48 08/11/24 13:21 White Blood Count 8.5 K/uL (4.8-10.8) Red Blood Count 4.34 MIL/uL (4.00-5.50) Hemoglobin 12.6 g/dL (12.0-16.0) Hematocrit 39.8 % (36-48) Mean Corpuscular Volume 91.7 fL (79-99) Mean Corpuscular Hemoglobin 29.0 pg (27.0-33.0) Mean Corpuscular Hemoglobin Concent 31.7 g/dL (32.0-36.0) L Red Cell Distribution Width 12.3 % (11.0-15.5) Platelet Count 243 K/uL (130-400) Mean Platelet Volume 11.0 fL (7.5-10.5) H Immature Granulocyte % (Auto) 0.2 % (0-1) Neutrophils (%) (Auto) 53.8 % (40.0-77.0) Lymphocytes (%) (Auto) 32.5 % (21.0-51.0) Monocytes (%) (Auto) 5.5 % (3.0-13.0) Eosinophils (%) (Auto) 7.2 % (0.0-8.0) Basophils (%) (Auto) 0.8 % (0.0-5.0) Neutrophils # (Auto) 4.6 K/uL (1.8-7.7) Lymphocytes # (Auto) 2.8 K/uL (1.0-4.8) Monocytes # (Auto) 0.5 K/uL (0.1-1.0) Eosinophils # (Auto) 0.61 K/uL (0.00-0.70) Basophils # (Auto) 0.07 K/uL (0.00-0.20) Absolute Immature Granulocyte (auto 0.02 K/uL (0-1) Nucleated Red Blood Cells 0.0 % (0.0-0.19) Sodium Level 140 mmol/L (136-145) Potassium Level 4.6 mmol/L (3.5-5.1) Chloride Level 105 mmol/L (101-111) Carbon Dioxide Level 32 mmol/L (21-32) Blood Urea Nitrogen 19 mg/dL (7-18) H Creatinine 0.9 mg/dL (0.5-1.0) Glomerular Filtration Rate Calc 76 mL/min (>90) Random Glucose 131 mg/dL (70-105) H Total Calcium 9.1 mg/dL (8.5-10.1) Total Creatine Kinase 134 U/L (21-232) B-Type Natriuretic Peptide 59 pg/mL (0-100) Troponin I < 0.05 ng/mL (0.00-0.05) Urine Color LIGHT-YELLOW (YELLOW) Urine Appearance CLOUDY (CLEAR) H Urine pH 5.5 (5.0-8.0) Urine Specific [place] 1.019 (1.001-1.031) Urine Protein NEGATIVE mg/dL (NEGATIVE) Urine Glucose (UA) >=1000 mg/dL (NEGATIVE) H Urine Ketones NEGATIVE mg/dL (NEGATIVE) Urine Occult Blood NEGATIVE (NEGATIVE) Urine Nitrate NEGATIVE (NEGATIVE) Urine Bilirubin NEGATIVE mg/dL (NEGATIVE) Urine Urobilinogen 0.2 mg/dL (0.2-1.0) Urine Leukocyte Esterase 250 Vikki/uL (NEGATIVE) H Urine RBC 2-5 /HPF (0-1) H Urine WBC 51-100 /HPF (0-1) H Urine Bacteria RARE /HPF (None Seen) Troponin I High Sensitivity 4 ng/L (4-50) Labs Reviewed?: Yes EKG/XRAY/US/CT/MRI EKG Comment Date: 08/11/2024 Time: 10:54 a.m. Rate: 57 EKG interpretation: Sinus rhythm, no STEMI, RBBB and LAFB Reviewed by ED Attending X-RAY Comment REASON: CHEST PAIN ORDERING PHYSICIAN: SHOSHNAA PHAM MD PROCEDURE: CXR1VW - CHEST 1VW CHEST 1VW HISTORY: Chest pain COMPARISON: 02/23/2023 FINDINGS: A frontal projection of the chest was obtained. No acute pulmonary infiltrates is seen. The heart is normal in size. Prominent interstitial markings are seen. No evidence of aortic calcification is seen. IMPRESSION: 1. No acute pulmonary infiltrate is seen. MDM MDM: Differential diagnosis: Atypical chest pain, OR, musculoskeletal chest pain Rationale: 54-year-old female presents to the ED due to chest pain onset three days. She was referred by PCP. Patient reports pain comes and goes, has shortne ss of breath when the pain occurs. Denies any fever, cough, chest injuries or further associated symptoms. Patient has history of stent placement, DM, HTN. 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 Negative troponin, EKG within normal limits. Chest ray indicates no acute pulmonary infiltrates. UA indicates a urinary tract infection. Patient received antibiotics in the ED and prescribed antibiotics for outpatient treatment. On re-examination patient's chest pain and shortness of breath have resolved. Heart score of two low risk. Patient educated on findings and diagnosis. Advised to follow up with PCP. Return to the ED if any worsening symptoms. Patient verbalized understanding. Patient stable for discharge. There are no social concerns with this patient. I independently interpreted the test that were performed, results were reviewed by me and considered findings on radiology if ordered. Medical management and examination interpretation discussions were had by me with other qualified healthcare professionals as indicated for the patient's care. ED Course Orders Procedure Category Date Status Time Vital Signs Per CPOE 08/11/24 Transmitted Routine 10:50 B-Type Natriuretic LAB 08/11/24 Complete Peptide 10:50 Chest 1vw RAD 08/11/24 Resulted 10:50 12 Lead Ekg Tracing- EKG 08/11/24 Resulted Technical 10:50 Oxygen By Nc/Pulse Ox CPOE 08/11/24 Transmitted 10:50 Maintain Iv CPOE 08/11/24 Transmitted 10:50 Iv Insertion CPOE 08/11/24 Transmitted 10:50 Cardiac Monitoring CPOE 08/11/24 Transmitted 10:50 Pulse Oximetry With CPOE 08/11/24 Transmitted Vs And Prn 10:50 Cbc With Differential LAB 08/11/24 Complete 10:50 Activity: Br W/Brp CPOE 08/11/24 Transmitted With Assist 10:50 Creatine Kinase, Total LAB 08/11/24 Complete 10:50 Urinalysis Profile LAB 08/11/24 Complete 10:50 Troponin Poc Order LAB 08/11/24 Complete Only 10:50 Bedside Troponin-I LAB.ER 08/11/24 Complete (Poc) 10:50 Basic Metabolic Panel LAB 08/11/24 Complete 10:50 Troponin I High LAB 08/11/24 Complete Sensitivity 13:01 Acetaminophen 500mg PHA 08/11/24 Complete Tab (Tylenol 500mg T 13:30 Culture Urine PILY 08/11/24 Complete 13:38 Nitrofurantoin PHA 08/11/24 Complete Monohyd/M-Cryst 14:30 Current Medications Medications (Trade) Dose Ordered Sig/Charito Route PRN Reason Start Time Stop Time Status Last Admin Dose Admin Acetaminophen (TYLenol 500MG TAB) 1,000 mg ONCE ONCE PO 08/11/24 13:30 08/11/24 13:31 DC 08/11/24 13:15 Nitrofurantoin Macrocrystals (Macrobid) 100 mg ONCE ONCE PO 08/11/24 14:30 08/11/24 14:28 DC 08/11/24 14:18 Vital Signs Date Time Temp Pulse Resp B/P (MAP) Pulse Ox O2 Delivery O2 Flow Rate FiO2 08/11/24 14:25 97.5 58 14 144/70 100 Room Air* 0 21 08/11/24 13:21 97.5 55 12 150/79 100 Room Air* 0 21 08/11/24 10:49 98.1 61 16 155/88 100 Room Air 0 HEART Score Response (Comments) Value History: Low suspicion (0) 0 EKG: Normal 0 Age: 45-65yrs (+1) 1 Risk Factors: 1-2 risk factors (+1) 1 Initial Troponin: Normal limit (0) 0 HEART Score Risk: Low Risk for MACE (1-3) Total 2 DX & DISP Disposition: Discharge Departure Impression: Primary Impression: UTI (urinary tract infection) Additional Impression: Atypical chest pain Condition: Stable Scripts Nitrofurantoin Macrocrystal (Nitrofurantoin) 100 Mg Capsule 100 MG PO BID for 7 Days, #14 CAP Prov: JOSE ANTONIO TERRY 08/11/24 Additional Instructions: Discharge home. Rest. Follow up with primary care in 24 hours. Return to the ER for any acute changes or worsening symptoms. If any medications were prescribed take as directed. Okay to continue home medications unless otherwise discussed during your visit in the emergency room today. Patient was also advised to follow-up with primary care physician in 1 to 2 days for continued monitoring. Referrals: [facility] [employer]APE DESIGNER (PCP) I performed this substantive portion of this visit. I have reviewed and personally made and approve the management plan that is documented in the note by myself or the [facility]. I acknowledge full responsibility for the patient's management plan. JOSE ANTONIO TERRY Aug 11, 2024 11:16 SHOSHANA PHAM MD Aug 13, 2024 12:45
[2024-08-11 11:20] LABS: BASOPHILS # (AUTO) 0.07 K/uL (0.00-0.20); BASOPHILS % (AUTO) 0.8 % (0.0-5.0); EOSINOPHILS # (AUTO) 0.61 K/uL (0.00-0.70); EOSINOPHILS % (AUTO) 7.2 % (0.0-8.0); HEMATOCRIT 39.8 % (36-48); IMMATURE GRANULOCYTE ABSOLUTE 0.02 K/uL (0-1); LYMPHOCYTES # (AUTO) 2.8 K/uL (1.0-4.8); LYMPHOCYTES % (AUTO) 32.5 % (21.0-51.0); MEAN CORPUSCULAR HGB CONC 31.7 g/dL (32.0-36.0); MEAN CORPUSCULAR VOLUME 91.7 fL (79-99); MONOCYTES # (AUTO) 0.5 K/uL (0.1-1.0); MONOCYTES % (AUTO) 5.5 % (3.0-13.0); NEUTROPHILS # (AUTO) 4.6 K/uL (1.8-7.7); NEUTROPHILS % (AUTO) 53.8 % (40.0-77.0); PLATELET COUNT (AUTO) 243 K/uL (130-400); RED BLOOD CELL COUNT(AUTO) 4.34 MIL/uL (4.00-5.50); RED CELL DISTRIBUTION WIDTH 12.3 % (11.0-15.5); WHITE BLOOD COUNT (AUTO) 8.5 K/uL (4.8-10.8)
[2024-08-11 11:33] LABS: CREATININE 0.9 mg/dL (0.5-1.0); POTASSIUM 4.6 mmol/L (3.5-5.1)
[2024-08-11 11:44] LABS: B-TYPE NATRIURETIC PEPTIDE 59 pg/mL (0-100)
--- NOTE | 2024-08-11 12:25 | HMCIMG ---
CHEST 1VW HISTORY: Chest pain COMPARISON: 02/23/2023 FINDINGS: A frontal projection of the chest was obtained. No acute pulmonary infiltrates is seen. The heart is normal in size. Prominent interstitial markings are seen. No evidence of aortic calcification is seen. IMPRESSION: 1. No acute pulmonary infiltrate is seen.
--- NOTE | 2024-08-11 12:38 | EKG ---
[facility] Test Date: 2024-08-11 Test Time: 10:54:40 Pat Name: AGUSTINA CARROLL Department: ED Room: Gender: F Service Station Attendant: [id number] : 1970 Requested By: SHOSHANA PHAM Order Number: [id number] Reading MD: Raysa Juan Measurements Intervals [place] Rate: 57 P: 10 SC: 140 QRS: -65 QRSD: 142 T: 11 QT: 461 QTc: 450 Interpretive Statements Sinus rhythm RBBB and LAFB Compared to ECG 11/23/2023 22:04:25 Myocardial infarct finding no longer present Electronically Signed On 08-12-2024 17:34:50 [employer]ENT by Raysa Juan Please click the below link to view image of tracing.
--- NOTE | 2024-08-11 13:09 | NUR ---
BEDDED ER 14 AT THIS TIME
[2024-08-11] MEDS: acetaMINOPHEN 500 MG TABLET PO ONE (13:15)
--- NOTE | 2024-08-11 13:15 | NUR ---
PATIENT OF DR HUTCHINSON - CARDIOLOGY. STATES 3 YEARS AGO HAD CARDIAC STENT PLACED AND IS ON PLAVIX. X3 DAYS EXPERIENCING INTERMITTENT STERNAL CHEST TIGHTNESS. SENT BY PCP FOR FUTHER EVALUATION.
[2024-08-11 13:34] LABS: APPEARANCE,URINE CLOUDY (CLEAR); BILIRUBIN,URINE NEGATIVE (NEGATIVE); COLOR,URINE LIGHT-YELLOW (YELLOW); GLUCOSE, URINE (UA) >=1000 mg/dL (NEGATIVE); KETONES,URINE NEGATIVE (NEGATIVE); LEUKOCYTE ESTERASE ,URINE 250 Leu/uL (NEGATIVE); NITRATE,URINE NEGATIVE (NEGATIVE); OCCULT BLOOD,URINE NEGATIVE (NEGATIVE); PH,URINE 5.5 (5.0-8.0); PROTEIN,URINE NEGATIVE (NEGATIVE); UROBILINOGEN,URINE 0.2 mg/dL (0.2-1.0)
[2024-08-11 13:37] LABS: ADD UA MICROSCOPIC YES
[2024-08-11 13:45] LABS: BACTERIA,URINE RARE /HPF (None Seen); MUCUS,URINE RARE LPF (None Seen); WBC,URINE 51-100 /HPF (0-1)
[2024-08-11] MEDS ORDERED: NITR100C PO (14:09)
[2024-08-11] MEDS: NITROFURANTOIN MONOHYD/M-CRYST 100 MG CAPSULE PO ONE (14:18)
[2024-08-11 14:25] VITALS: BP 144/70; PULSE 58; RESP 14; TEMP 97.5; O2SAT 100
== END 2024-08-11 14:28 | disposition home or self-care (01) ==
LOC: EDH 10:49
DX: N39.0 Urinary tract infection, site not specified (principal); R07.89 Other chest pain; E11.9 Type 2 diabetes mellitus without complications; E03.9 Hypothyroidism, unspecified; E78.00 Pure hypercholesterolemia, unspecified; I10 Essential (primary) hypertension; Z79.02 Long term (current) use of antithrombotics/antiplatelets; Z79.84 Long term (current) use of oral hypoglycemic drugs; Z79.890 Hormone replacement therapy; Z79.899 Other long term (current) drug therapy; Z88.0 Allergy status to penicillin; Z88.6 Allergy status to analgesic agent; Z90.710 Acquired absence of both cervix and uterus; Z95.5 Presence of coronary angioplasty implant and graft
CPT/HCPCS: 36415; 71045; 80048; 81001; 82550; 83880; 84484; 85025; 87086; 87186; 93005; 99285

== ENCOUNTER 2025-01-27 16:10 | Inpatient (IN) | payer OTHER ==
[~2025-01-27] VITALS: Ht 162.6 cm; Wt 69.9 kg
[~2025-01-27 16:10] MED LIST changes: -LEVO100C4 PO; +LEVO100C5 PO; +NITR100C PO
--- NOTE | 2025-01-27 16:19 | ERN ---
General Chief Complaint: Chest Pain Stated Complaint: CHEST PAIN Time Seen by MD: 16:14 Source: patient History of Present Illness Initial Comments 54-YEAR-OLD FEMALE COMING IN TO BE EVALUATED FOR CHEST PAIN. PER PATIENT HE HAS A PRESENTING WITH CHEST PAIN RECEIVED A NITROGLYCERIN VIA EMS STATES THE PAIN IMPROVED, 10-5. Allergies: Coded Allergies: Penicillins (Unverified Allergy, Unknown, 07/13/21) aspirin (Verified Allergy, Unknown, 07/12/21) coconut (Unverified Allergy, Unknown, 07/13/21) shrimp (Unverified Allergy, Unknown, 07/13/21) Home Meds Active Scripts Nitrofurantoin Macrocrystal (Nitrofurantoin) 100 Mg Capsule, 100 MG PO BID for 7 Days, #14 CAP Prov:JOSE ANTONIO TERRY 08/11/24 Diphenhydramine HCl (Benadryl) 50 Mg Cap, 25 MG PO TID PRN for ALLERGIC REACTION for 10 Days, #30 CAP 0 Refills Prov:FABIO ALAMO MD 02/28/24 Lactobacillus Combination No.4 (Probiotic) 3 Billion Cell Capsule, 1 EACH PO DAILY, #14 CAP Prov:DARLIN FREED MD 11/24/23 Famotidine (Pepcid) 20 Mg Tablet, 20 MG PO Q12H, #28 TAB Prov:DARLIN FREED MD 11/24/23 Ondansetron (Ondansetron Odt) 4 Mg Tab.rapdis, 4 MG SL Q4HPRN PRN for nausea/vomiting, #10 TAB Prov:DARLIN FREED MD 11/24/23 Acetaminophen (Acetaminophen) 500 Mg Tablet, 1000 MG PO Q6HPRN PRN for fever/pain, #24 TAB Prov:DARLIN FREED MD 11/24/23 Sulfamethoxazole/Trimethoprim (Bactrim Ds Tablet) 1 Each Tablet, 1 TAB PO BID for 5 Days, #10 TAB 0 Refills Prov:CHELSEA MONTENEGRO MD 01/01/23 Pantoprazole Sodium (Pantoprazole Sodium) 40 Mg Granpkt.dr, 40 MG PO DAILYBKFST, #15 PACK Prov:CHELSEA MONTENEGRO MD 01/01/23 Atorvastatin Calcium (Atorvastatin Calcium) 40 Mg Tablet, 40 MG PO HS, #30 TAB 1 Refill Prov:GLAINDO RHODES MD 09/01/21 Ticagrelor (Brilinta) 90 Mg Tablet, 90 MG PO BID, #60 TAB 2 Refills Prov:GALINDO RHODES MD 09/01/21 Nitrofurantoin Monohyd/M-Cryst (Macrobid 100 mg Capsule) 100 Mg Capsule, 100 MG PO BID for 5 Days, #10 CAP 0 Refills Prov:GALINDO RHODES MD 09/01/21 Reported Medications Loratadine (Loratadine) 10 Mg Tablet, 10 MG PO DAILY, TAB 08/30/21 Sitagliptin Phosphate (Januvia) 100 Mg Tablet, 100 MG PO DAILY, TAB 08/30/21 Lisinopril (Lisinopril) 40 Mg Tablet, 40 MG PO DAILY, TAB 08/30/21 Levothyroxine Sodium (Levothyroxine Sodium) 100 Mcg Tablet, 100 MCG PO DAILY, TAB 08/30/21 Albuterol Sulfate (Albuterol Sulfate) 1.25 Mg/3 Ml Vial.neb, 108 MCG IH Q4PRN, INH 08/30/21 Empagliflozin/Metformin HCl (Synjardy 12.5-1,000 mg Tablet) 1 Each Tablet, 1 EACH PO BID, TAB 07/13/21 Nitroglycerin (Nitroglycerin) 0.4 Mg Tab.subl, 0.4 MG SL AD PRN for CHEST PAIN, TAB.SL 07/13/21 Amlodipine Besylate (Amlodipine Besylate) 5 Mg Tablet, 5 MG PO DAILY, TAB 07/13/21 Levothyroxine Sodium (Levothyroxine) 100 Mcg Capsule, 100 MCG PO DAILY, CAP 07/13/21 Ergocalciferol (Vitamin D2) (Vitamin D2) 1,250 Mcg Capsule, 1250 MCG PO QWEEK, C AP 07/13/21 Sitagliptin Phosphate (Januvia) 100 Mg Tablet, 100 MG PO DAILY, TAB 07/13/21 Carvedilol (Carvedilol) 12.5 Mg Tablet, 12.5 MG PO BID, TAB 07/13/21 Montelukast Sodium (Montelukast Sodium) 10 Mg Tablet, 10 MG PO HS, TAB 07/13/21 Glimepiride (Glimepiride) 2 Mg Tablet, 2 MG PO BID, TAB 07/13/21 Lisinopril (Lisinopril) 40 Mg Tablet, 40 MG PO DAILY, TAB 07/13/21 Omeprazole (Omeprazole) 20 Mg Capsule.dr, 20 MG PO AD PRN for HEARTBURN, CAP 07/13/21 Past Medical History Past Medical History: Diabetes-Type II, High Cholesterol, Hypertension, Hypothyroid Past Surgical History: Hysterectomy Surgical History Other: HEART STENT Family History Family History: HTN Social History Social History: Negative, Lives with family Female( History) History: Not Applicable ROS Dictation CONSTITUTIONAL: NO CHILLS, NO FEVER, NO WEAKNESS, NO DIAPHORESIS, NO MALAISE. HEAD/FACE: NO SIGNS OF TRAUMA. EENT: NO EYE PAIN, NO BLURRED VISION, NO TEARING, NO DOUBLE VISION, NO EAR PAIN, NO EAR DISCHARGE, NO NOSE PAIN, NO NASAL CONGESTION, NO THROAT PAIN, NO THROAT SWELLING, NO MOUTH PAIN. RESPIRATORY: NO COUGH, NO ORTHOPNEA, NO SOB, NO STRIDOR, NO WHEEZING. CARDIOVASCULAR: CHEST PAIN, NO EDEMA, NO PALPITATIONS, NO SYNCOPE. GASTROINTESTINAL/ABDOMINAL: NO ABDOMINAL PAIN, NO CONSTIPATION, NO DIARRHEA, NO NAUSEA, NO VOMITING. GENITOURINARY: NO ABNORMAL DISCHARGE, NO DYSURIA, NO FREQUENT URINATION, NO HEMATURIA. NO COMPLAINTS OF PAIN IN THE GENITALS. MUSCULOSKELETAL: NO BACK PAIN, NO GOUT, NO JOINT PAIN, NO JOINT SWELLING, NO MUSCLE PAIN, NO MUSCLE STIFFNESS, NO NECK PAIN. INTEGUMENTARY: NO CHANGE IN COLOR, NO CHANGE IN HAIR/NAILS, NO DRYNESS, NO LESION, NO LUMPS, NO RASH. NEUROLOGICAL/PSYCH: NO ANXIETY, NOT DEPRESSED, NO EMOTIONAL PROBLEM, NO HEADACHE, NO NUMBNESS, NO PRE-EXISTING DEFICIT, NO HISTORY OF SEIZURES, NO TREMORS, NO WEAKNESS. HEMATOLOGIC/LYMPHATIC: NOT ANEMIC, NO HISTORY OF BLOOD CLOTS, NO APPARENT BLEEDING, NO BRUISING, GLANDS NOT SWOLLEN. ALL SYSTEMS NEGATIVE, EXCEPT NOTED. Physical Exam Physical Exam Dictation VITAL SIGNS: REVIEWED. GENERAL APPEARANCE: ALERT, ORIENTED X3, NO ACUTE DISTRESS, OBESE. HEAD AND FACE: NON-TRAUMATIC. EYES: PERRL, PINK CONJUNCTIVAS, EYELID NO TRAUMA, ANTERIOR CHAMBER CLEAR. EARS: PINNAS INTACT AND NO SIGNS OF TRAUMA OR ERYTHEMA. EAR CANALS CLEAR AND NO DISCHARGE. TMS NO ERYTHEMA. NOSE: NO DISCHARGE, NO BLEEDING. OROPHARYNX: MOUTH NORMAL, TEETH NO CARIES, TONGUE PINK. PHARYNX CLEAR, NO ERYTHEMA. TONSILS NO EXUDATES, NO ABSCESSES NOTED. MUCOUS MEMBRANE MOIST. NECK: SUPPLE, NON-TENDER, NO THYROMEGALY, NO MASSES, NO JVD, NO BRUITS. BREAST: DEFERRED. CHEST: NO TENDERNESS, NO CREPITUS, NO PARADOXICAL MOVEMENT, NO RETRACTIONS. LUNGS: CLEAR, WELL-VENTILATED, SYMMETRIC, NO RALES, NO WHEEZING, NO RHONCHI, NO STRIDOR, GOOD BREATH SOUNDS BILATERALLY. HEART: REGULAR RATE, REGULAR RHYTHM, NO MURMUR, NO GALLOPS. VASCULAR: NO PERIPHERAL EDEMA. ABDOMEN: SOFT, POSITIVE BOWEL SOUNDS, NONDISTENDED, NO GUARDING, NONTENDER, NO REBOUND, NO MASSES NO HEPATOMEGALY, NO SPLENOMEGALY, NO SCHAEFER'S SIGN, NO HERNIAS. RECTAL: DEFERRED. GENITAL: DEFERRED. NEUROLOGICAL: NORMAL SPEECH, GROSS MOTOR FUNCTION INTACT, GROSS SENSORY FUNCTION INTACT. MUSCULOSKELETAL: NECK NONTENDER, FULL RANGE OF MOTION, BACK NONTENDER, FULL RANGE OF MOTION. EXTREMITIES: NONTENDER, FULL RANGE OF MOTION. SKIN: COLOR PINK, DRY, NO TURGOR, NO RASH, NO LACERATIONS, NO ABRASIONS, NO CONTUSIONS. LYMPHATICS: DEFERRED. Results Laboratory and Microbiology Lab and Micro Result Laboratory Tests Test 01/27/25 16:25 01/27/25 17:00 01/27/25 17:13 White Blood Count 8.2 K/uL (4.8-10.8) Red Blood Count 3.84 MIL/uL (4.00-5.50) L Hemoglobin 11.2 g/dL (12.0-16.0) L Hematocrit 35.0 % (36-48) L Mean Corpuscular Volume 91.1 fL (79-99) Mean Corpuscular Hemoglobin 29.2 pg (27.0-33.0) Mean Corpuscular Hemoglobin Concent 32.0 g/dL (32.0-36.0) Red Cell Distribution Width 13.6 % (11.0-15.5) Platelet Count 274 K/uL (130-400) Mean Platelet Volume 9.5 fL (7.5-10.5) Immature Granulocyte % (Auto) 0.2 % (0-1) Neutrophils (%) (Auto) 65.0 % (40.0-77.0) Lymphocytes (%) (Auto) 25.6 % (21.0-51.0) Monocytes (%) (Auto) 5.1 % (3.0-13.0) Eosinophils (%) (Auto) 3.4 % (0.0-8.0) Basophils (%) (Auto) 0.7 % (0.0-5.0) Neutrophils # (Auto) 5.3 K/uL (1.8-7.7) Lymphocytes # (Auto) 2.1 K/uL (1.0-4.8) Monocytes # (Auto) 0.4 K/uL (0.1-1.0) Eosinophils # (Auto) 0.28 K/uL (0.00-0.70) Basophils # (Auto) 0.06 K/uL (0.00-0.20) Absolute Immature Granulocyte (auto 0.02 K/uL (0-1) Nucleated Red Blood Cells 0.0 % (0.0-0.19) Sodium Level 132 mmol/L (136-145) L Potassium Level 4.2 mmol/L (3.5-5.1) Chloride Level 99 mmol/L (101-111) L Carbon Dioxide Level 24 mmol/L (21-32) Blood Urea Nitrogen 14 mg/dL (7-18) Creatinine 1.1 mg/dL (0.5-1.0) H Glomerular Filtration Rate Calc 60 mL/min (>90) Random Glucose 221 mg/dL (70-105) H Total Calcium 8.7 mg/dL (8.5-10.1) Troponin I High Sensitivity 11 ng/L (4-50) 12 ng/L (4-50) Urine Color YELLOW (YELLOW) Urine Appearance TURBID (CLEAR) Urine pH 6.0 (5.0-8.0) Urine Specific [place] 1.014 (1.001-1.031) Urine Protein 20 mg/dL (NEGATIVE) H Urine Glucose (UA) >=1000 mg/dL (NEGATIVE) H Urine Ketones 5 mg/dL (NEGATIVE) H Urine Occult Blood +- (TRACE) (NEGATIVE) H Urine Nitrate NEGATIVE (NEGATIVE) Urine Bilirubin NEGATIVE mg/dL (NEGATIVE) Urine Urobilinogen 0.2 mg/dL (0.2-1.0) Urine Leukocyte Esterase 500 Vikki/uL (NEGATIVE) H Urine RBC 11-25 /HPF (0-1) H Urine WBC 51-100 /HPF (0-1) H Urine WBC Clumps (Auto) FEW /HPF (0-1) Urine Other Crystals (Auto) 8 /HPF (None Seen) Urine Bacteria MOD /HPF (None Seen) Labs Reviewed?: Yes EKG/XRAY/US/CT/MRI EKG Comment 04/2025 TIME 4:26 P.M. VENTRICULAR RATE [address] [address] WAVE ELEVATION OR DEPRESSION MDM MDM: DIFFERENTIAL DIAGNOSIS: CHEST PAIN, NSTEMI, ACS, RATIONALE: TESTS CONSIDERED AND ORDERED SECONDARY TO SHARED DECISION MAKING INCLUDE: PREVIOUS OUTSIDE RECORDS REVIEWED: OLD ER VISITS. RISK OF COMPLICATION AND/OR MORBIDITY OR MORTALITY OF PATIENT MANAGEMENT: NONE MEDICATIONS-PER MEDICATION RECONCILIATION NEED FOR HOSPITALIZATION: PATIENT DOES MEET CRITERIA FOR HOSPITALIZATION. NEED FOR EMERGENCY MAJOR/MINOR SURGERY: NO THERE ARE NO SOCIAL CONCERNS WITH THIS PATIENT. PRESCRIPTION DRUG MANAGEMENT PRESCRIPTIONS WILL INCLUDE SYMPTOMATIC CARE PATIENT'S PRIOR EXTERNAL MEDICAL RECORDS FROM OTHER ER VISITS WERE REVIEWED BY ME INDICATED. PRIOR TESTING AND RESULTS FROM PREVIOUS VISITS WERE REVIEWED. PRIOR TESTS WERE TAKEN INTO ACCOUNT WITH MEDICAL DECISION MAKING AND RESOURCE UTILIZATION, INDEPENDENT HISTORIAN/HISTORIANS WERE USED TO OBTAIN COMPLETE MEDICAL HISTORY. I INDEPENDENTLY INTERPRETED THE TEST THAT WERE PERFORMED, RESULTS WERE REVIEWED BY ME AND CONSIDERED FINDINGS ON RADIOLOGY IF ORDERED. MEDICAL MANAGEMENT AND EXAMINATION INTERPRETATION DISCUSSIONS WERE HAD BY ME WITH OTHER QUALIFIED HEALTHCARE PROFESSIONALS INDICATED FOR THE PATIENT'S CARE. HE WILL BE ADMITTED UNDER THE CARE OF HOSPITALIST GROUP FOR ONGOING MANAGEMENT OF CHEST PAIN WITH HIGH HEART SCORE WELL A URINARY TRACT INFECTION. ED Course Orders Procedure Category Date Status Time Vital Signs Per CPOE 01/27/25 Transmitted Routine 16:12 Chest 1vw RAD 01/27/25 Resulted 16:12 12 Lead Ekg Tracing- EKG 01/27/25 Logged Technical 16:12 Oxygen By Nc/Pulse Ox CPOE 01/27/25 Transmitted 16:12 Maintain Iv CPOE 01/27/25 Transmitted 16:12 Iv Insertion CPOE 01/27/25 Transmitted 16:12 Cardiac Monitoring CPOE 01/27/25 Transmitted 16:12 Pulse Oximetry With CPOE 01/27/25 Transmitted Vs And Prn 16:12 Cbc With Differential LAB 01/27/25 Complete 16:12 Activity: Br W/Brp CPOE 01/27/25 Transmitted With Assist 16:12 Troponin I High LAB 01/27/25 Complete Sensitivity 16:12 Urinalysis Profile LAB 01/27/25 Complete 16:12 Basic Metabolic Panel LAB 01/27/25 Complete 16:12 Troponin I High LAB 01/27/25 Complete Sensitivity 16:58 Pantoprazole 40mg Inj PHA 01/27/25 Complete (Protonix 40mg Inj 17:00 Culture Urine PILY 01/27/25 Logged 17:22 Levofloxacin 500 PHA 01/27/25 In Process Mg/D5w 100 Ml 18:00 Troponin I High LAB 01/27/25 Logged Sensitivity 18:14 Current Medications Medications (Trade) Dose Ordered Sig/Charito Route PRN Reason Start Time Stop Time Status Last Admin Dose Admin Levofloxacin/ Dextrose 100 ml @ 100 mls/hr Q24H IV 01/27/25 18:00 02/06/25 17:59 01/27/25 18:13 Pantoprazole Sodium (PROTonix 40MG INJ) 40 mg ONCE ONCE IVP 01/27/25 17:00 01/27/25 17:07 DC 01/27/25 17:14 Vital Signs Date Time Temp Pulse Resp B/P (MAP) Pulse Ox O2 Delivery O2 Flow Rate FiO2 01/27/25 16:30 98.1 90 18 135/75 98 Room Air* 0 21 01/27/25 16:15 98.1 90 20 135/75 98 Room Air DX & DISP Disposition: Inpatient Decision to Admit Time: 18:25 Departure Impression: Primary Impression: Chest pain Additional Impression: UTI (urinary tract infection) Condition: Stable Referrals: CHARLIE HALL DYNAMICIST (PCP) SHOSHANA PHAM MD January 27, 2025 16:19
[2025-01-27 16:33] LABS: BASOPHILS # (AUTO) 0.06 K/uL (0.00-0.20); BASOPHILS % (AUTO) 0.7 % (0.0-5.0); EOSINOPHILS # (AUTO) 0.28 K/uL (0.00-0.70); EOSINOPHILS % (AUTO) 3.4 % (0.0-8.0); IMMATURE GRANULOCYTE ABSOLUTE 0.02 K/uL (0-1); LYMPHOCYTES # (AUTO) 2.1 K/uL (1.0-4.8); LYMPHOCYTES % (AUTO) 25.6 % (21.0-51.0); MEAN CORPUSCULAR HEMOGLOBIN 29.2 pg (27.0-33.0); MEAN CORPUSCULAR VOLUME 91.1 fL (79-99); MONOCYTES # (AUTO) 0.4 K/uL (0.1-1.0); MONOCYTES % (AUTO) 5.1 % (3.0-13.0); NEUTROPHILS # (AUTO) 5.3 K/uL (1.8-7.7); PLATELET COUNT (AUTO) 274 K/uL (130-400); RED BLOOD CELL COUNT(AUTO) 3.84 MIL/uL (4.00-5.50); RED CELL DISTRIBUTION WIDTH 13.6 % (11.0-15.5); WHITE BLOOD COUNT (AUTO) 8.2 K/uL (4.8-10.8)
[2025-01-27 16:46] LABS: CREATININE 1.1 mg/dL (0.5-1.0); POTASSIUM 4.2 mmol/L (3.5-5.1)
[2025-01-27] MEDS: PANTOPrazole 40 MG/VIAL IVP ONE (17:14)
[2025-01-27 17:20] LABS: APPEARANCE,URINE TURBID (CLEAR); BILIRUBIN,URINE NEGATIVE (NEGATIVE); COLOR,URINE YELLOW (YELLOW); GLUCOSE, URINE (UA) >=1000 mg/dL (NEGATIVE); KETONES,URINE 5 mg/dL (NEGATIVE); LEUKOCYTE ESTERASE ,URINE 500 Leu/uL (NEGATIVE); NITRATE,URINE NEGATIVE (NEGATIVE); PROTEIN,URINE 20 mg/dL (NEGATIVE); UROBILINOGEN,URINE 0.2 mg/dL (0.2-1.0)
[2025-01-27 17:21] LABS: ADD UA MICROSCOPIC YES
[2025-01-27 17:25] LABS: BACTERIA,URINE MOD /HPF (None Seen); MUCUS,URINE RARE LPF (None Seen); UNCLASSIFIED CRYSTAL 8 /HPF (None Seen); WBC CLUMP FEW /HPF (0-1); WBC,URINE 51-100 /HPF (0-1)
--- NOTE | 2025-01-27 17:29 | HMCIMG ---
PORTABLE CHEST RADIOGRAPH INDICATION: CHEST PAIN COMPARISON: 08/11/2024 FINDINGS: Heart size is normal. The pulmonary vascularity and zoë appear normal. No abnormal pulmonary parenchymal opacity or consolidation identified. No significant pleural effusion noted. No pneumothorax detected. IMPRESSION: No radiographic evidence for any acute cardiopulmonary process.
[2025-01-27] MEDS: levoFLOXacin 500 MG/D5W 100 ML 100 ML IV SCH (18:13)
[2025-01-27] MEDS ORDERED: ASPIRIN 81MG CHEW TAB PO ONE (18:30)
[2025-01-27] MEDS ORDERED: NITROGLYCERIN 0.4 MG SL TAB SL PRN (19:00)
[2025-01-27] MEDS ORDERED: acetaMINOPHEN 325 MG TAB PO PRN (19:00)
[2025-01-27] MEDS ORDERED: acetaMINOPHEN 650 MG SUPPOSITORY RC PRN (19:00)
[2025-01-27] MEDS ORDERED: TEMAZepam 15 MG CAPSULE PO PRN (19:00)
[2025-01-27] MEDS ORDERED: doCUSate SODIUM 100 MG CAP PO PRN (19:00)
[2025-01-27] MEDS ORDERED: ondanSETRON 4MG INJ IVP PRN (19:00)
[2025-01-27] MEDS ORDERED: LAbetaLOL 20MG SYG IV PRN (19:00)
--- NOTE | 2025-01-27 19:07 | HP ---
[facility] HISTORY AND PHYSICAL Date of Service: January 27, 2025 Time of Service: 18:55 PCP: Vanadna Olivares Attending/supervising physician: Dr. Perea and Dr. Jag Aguilar HISTORY OF PRESENT ILLNESS: Ms. Huffman is a 54-year-old female with a history of a DM type 2, HTN, hypercholesteremia, hypothyroidism, CAD s/p heart stents who [place] [facility] [place] for evaluation of chest pain. According to chart review the patient received nitroglycerin provided by EMS. ED provider reports nitroglycerin sublingually was given in ED also with improvement of chest pain. Troponins negative x2. Chest x-ray: No radiographic evidence for any acute cardiopulmonary process. Remarkable lab results: Hemoglobin 11.2, hematocrit 35.0, sodium 132, chloride 99, creatinine 1.1, GFR 60, glucose 221. UA positive for leuk EST, protein, glucose, ketones, blood. In ED the patient received Levaquin and Protonix. ED physician reports that due to the patient's history of a cardiac stents, recent chest pain, and urinary tract infection he would like the patient admitted to the hospital. The patient was admitted by the [facility] team. I evaluate the patient in ED . The patient appeared comfortable, breathing was even, unlabored, denied any chest pain. I informed her of a negative troponins x3, labs, diagnostics, and plan of care. She verbalized understanding and is in agreement with the plan. Plan and assessment are listed below. ADDENDUM: DDIMER: 527, BNP: 29. Episode of hypoglycemia: Blood glucose was 53 (The patient reports she is on Mounjaro & did not eat since this morning. The patient reports that she was on glimepiride and Synjardy but she was told to stopped taking them because her A1c was 5.2. The patient reported later she started Ozempic but it had a lot of GI upset, lots of nausea and vomiting, no appetite.) REVIEW OF SYSTEMS 12-point ROS reviewed with patient. All pertinent positives mentioned above. Otherwise negative, non-pertinent, or noncontributory. MEDICAL HISTORY: As mentioned above SOCIAL HISTORY: Denies smoking tobacco, occasional beer drinker 1-2 every 2 weeks, denies illicit drug use SURGICAL HISTORY: Left heart cath 07/16/2021, cardiac stents, hysterectomy FAMILY HISTORY: SISTER: Carcinoma, DM, HTN, HDL, hypothyroidism, CAD MOTHER: DM, HTN FATHER: HTN Coded Allergies: Penicillins (Unverified Allergy, Unknown, 07/13/21) aspirin (Verified Allergy, Unknown, 07/12/21) coconut (Unverified Allergy, Unknown, 07/13/21) shrimp (Unverified Allergy, Unknown, 07/13/21) PHYSICAL EXAM GENERAL APPEARANCE: The patient is awake, alert, and oriented, in no acute cardiopulmonary distress. NEUROLOGICAL: Cranial nerves II-XII grossly intact. Motor is 5/5 in bilateral upper and lower extremities proximal to distal. No sensory deficits. HEENT: Face is symmetric. Pupils are equal and reactive. Extraocular movements are intact. NECK: Supple. No JVD. No thyromegaly. No submental, submandibular, pre-/postauricular, occipital or supraclavicular lymphadenopathy. CHEST: Normal chest expansion. No Telemetry. LUNGS: Absence of any rales, rhonchi or any wheezing. CARDIOVASCULAR: Regular. S1 and S2 normal. No appreciable rubs, murmurs or gallops. ABDOMEN: Soft, nontender, and nondistended. There is no rebound, voluntary guarding, or rigidity. : Deferred. No Mtz. EXTREMITIES: Non-edematous and not cyanotic. No clubbing. Good capillary refill. SKIN: No skin breakdown. Vital Sign (Last 24 Hours) 01/27/25 18:30 Temp 98.1 Pulse 75 Resp 18 B/P (MAP) 136/78 Pulse Ox 100 O2 Delivery Room Air* O2 Flow Rate 0 FiO2 21 LABS: Laboratory: Test 01/27/25 17:13 01/27/25 17:00 01/27/25 16:25 Range/Units Troponin I High Sensitivity 12 4-50 ng/L Urine Color YELLOW YELLOW Urine Appearance TURBID CLEAR Urine pH 6.0 5.0-8.0 Urine Specific [place] 1.014 1.001-1.031 Urine Protein 20 H NEGATIVE mg/dL Urine Glucose (UA) >=1000 H NEGATIVE mg/dL Urine Ketones 5 H NEGATIVE mg/dL Urine Occult Blood +- (TRACE) H NEGATIVE Urine Nitrate NEGATIVE NEGATIVE Urine Bilirubin NEGATIVE NEGATIVE mg/dL Urine Urobilinogen 0.2 0.2-1.0 mg/dL Urine Leukocyte Esterase 500 H NEGATIVE Vikki/uL Urine RBC 11-25 H 0-1 /HPF Urine WBC 51-100 H 0-1 /HPF Urine WBC Clumps (Auto) FEW 0-1 /HPF Urine Other Crystals (Auto) 8 None Seen /HPF Urine Bacteria MOD None Seen /HPF White Blood Count 8.2 4.8-10.8 K/uL Red Blood Count 3.84 L 4.00-5.50 MIL/uL Hemoglobin 11.2 L 12.0-16.0 g/dL Hematocrit 35.0 L 36-48 % Mean Corpuscular Volume 91.1 79-99 fL Mean Corpuscular Hemoglobin 29.2 27.0-33.0 pg Mean Corpuscular Hemoglobin Concent 32.0 32.0-36.0 g/dL Red Cell Distribution Width 13.6 11.0-15.5 % Platelet Count 274 130-400 K/uL Mean Platelet Volume 9.5 7.5-10.5 fL Immature Granulocyte % (Auto) 0.2 0-1 % Neutrophils (%) (Auto) 65.0 40.0-77.0 % Lymphocytes (%) (Auto) 25.6 21.0-51.0 % Monocytes (%) (Auto) 5.1 3.0-13.0 % Eosinophils (%) (Auto) 3.4 0.0-8.0 % Basophils (%) (Auto) 0.7 0.0-5.0 % Neutrophils # (Auto) 5.3 1.8-7.7 K/uL Lymphocytes # (Auto) 2.1 1.0-4.8 K/uL Monocytes # (Auto) 0.4 0.1-1.0 K/uL Eosinophils # (Auto) 0.28 0.00-0.70 K/uL Basophils # (Auto) 0.06 0.00-0.20 K/uL Absolute Immature Granulocyte (auto 0.02 0-1 K/uL Nucleated Red Blood Cells 0.0 0.0-0.19 % Sodium Level 132 L 136-145 mmol/L Potassium Level 4.2 3.5-5.1 mmol/L Chloride Level 99 L 101-111 mmol/L Carbon Dioxide Level 24 21-32 mmol/L Blood Urea Nitrogen 14 7-18 mg/dL Creatinine 1.1 H 0.5-1.0 mg/dL Glomerular Filtration Rate Calc 60 >90 mL/min Random Glucose 221 H 70-105 mg/dL Total Calcium 8.7 8.5-10.1 mg/dL Current Medications Medications (Trade) Dose Ordered Sig/Charito Route PRN Reason Start Time Stop Time Status Last Admin Dose Admin Acetaminophen (TYLenol 325MG TAB) 650 mg Q6H PRN PO FEVER/MILD PAIN LEVEL 1-3 01/27/25 19:00 02/26/25 18:59 Acetaminophen (TYLenol 650MG SUPPOSITORY) 650 mg Q6H PRN RC FEVER / MILD PAIN 1-3 IF NPO 01/27/25 19:00 02/26/25 18:59 Aspirin (Aspirin 81mg Chew Tab) 81 mg DAILY PO 01/28/25 09:00 01/27/25 18:37 DC Docusate Sodium (COLace 100MG CAP) 100 mg BID PRN PO c 01/27/25 19:00 02/26/25 18:59 Famotidine (Pepcid 20mg Tab) 20 mg DAILY PO 01/28/25 09:00 02/27/25 08:59 Insulin Human Regular (humuLIN R 100 UNIT/ML 3ML) INSULIN SLIDING SCAL... ACHS SQ 01/27/25 21:00 02/26/25 20:59 Labetalol HCl (TRANdate 20MG SYG) 10 mg Q2H PRN IV SBP GREATER THAN 180 01/27/25 19:00 02/26/25 18:59 Lactulose (Constulose 20gm/ 30ml Udcup) 20 gm Q6H PRN PO CONSTIPATION 01/27/25 19:00 02/26/25 18:59 Levofloxacin/ Dextrose 100 ml @ 100 mls/hr Q24H IV 01/27/25 18:00 02/06/25 17:59 01/27/25 18:13 100 MLS/HR Nitroglycerin (Nitrostat) 0.4 mg AD PRN SL CHEST PAIN 01/27/25 19:00 02/26/25 18:59 Ondansetron HCl (zoFRAN 4MG INJ) 4 mg Q6H PRN IVP NAUSEA/VOMITING 01/27/25 19:00 02/26/25 18:59 Temazepam (restORIL 15 MG CAP) 15 mg HS PRN PO INSOMNIA/SLEEP 01/27/25 19:00 02/26/25 18:59 DIAGNOSTICS / RADIOLOGY: [ ] ASSESSMENT: Acute chest pain with high risk cardiac etiology r/o ACS, x2 negative troponins Acute complicated cystitis, POA Anemia of chronic disease Electrolyte derangement (hyponatremia, hypochloremia) Acute kidney injury, GFR 60 Acute on chronic kidney disease stage 2, (GFR on 06/15- 08/15 range 67-76) Diabetes mellitus with hyperglycemia Proteinuria, glucosuria, ketonuria, hematuria, per UA 01/27/25 Chronic problem list: DM type 2, HTN, hypercholesteremia, hypothyroidism, CAD s/p heart stents PLAN: -Admit to medical floor with continuous telemetry monitoring. -Troponin levels and EKG series. -Cardiology consult in the am. -2D echo in a.m. with heart clinic to read. -PRN medications for pain management, fever, N/V, constipation, hypertension. -Oxygen supplement as needed to maintain oxygen levels equal to or greater than 92% -Nitroglycerin sublingual as needed chest pain -No Aspirin administered because patient reports allergies to aspirin. -Atorvastatin 40 mg PO daily. -I&O. -Blood pressure checks every 4 hours and as needed. -Continue Levaquin 750 mg IV daily.- -Follow urine cultures, antibiotic tailored to cultures, deescalate antibiotics when appropriate. -Start patient's home medications Plavix, lisinopril, atorvastatin, Protonix. -monitor for hypoglycemia. -Glucometer checks before meals and at bedtime with 1/2 insulin regular sliding scale p.r.n.. -Monitor renal and liver function. -Monitor electrolytes and treat accordingly. -AM labs: CBC, BMP, trop, mag, phos, A1C, TSH. -DVT and GI prophylaxis: Heparin and Protonix -Pending CT PE protocol and bilat venous dropper of lower extremities. ADVANCED CARE PLANNING 1. Which of the following were discussed? Hospice Care - No Therapeutic options - Yes Advance Directives - Yes Other discussions - 2. Discussed with who? Patient 3. Voluntary nature of this service was explained to the patient? Yes 4. Amount of time spent - __ Over 35 minutes 5. Reviewed by Physician? (if this service was performed by NPP) Yes ATTESTATION BY PHYSICIAN I have seen and examined the patient. I reviewed the documentation, medical decision making, and treatment plan as noted by the mid-level provider above. I agree with the findings and plan of care. [facility] January 27, 2025 19:07
[2025-01-27] MEDS ORDERED: GLUCAGON 1MG KIT 1 MG ML IM PRN (19:30)
[2025-01-27] MEDS ORDERED: PoTASSium chl 10% ELIXIR 20MEQ 20 MEQ/15 ML UDCUP PO PRN (19:30)
[2025-01-27] MEDS ORDERED: PoTASSium chloRIDE 10MEQ/100ML 100 ML IV PRN (19:30)
[2025-01-27] MEDS ORDERED: PoTASSium chloRIDE 20MEQ ER 20 MEQ ERTAB PO PRN (19:30)
[2025-01-27] MEDS ORDERED: DEXTROSE 50%-WATER 50 ML DISP.SYRIN IV PRN (19:30)
[2025-01-27 19:41] LABS: AMPHET/METH SCREEN,URINE NEGATIVE (NEGATIVE); BARBITURATE SCREEN, URINE NEGATIVE (NEGATIVE); BENZODIAZEPINES SCREEN,URINE NEGATIVE (NEGATIVE); CANNABINOID SCREEN,URINE NEGATIVE (NEGATIVE); COCAINE SCREEN,URINE NEGATIVE (NEGATIVE); OPIATE SCREEN,URINE NEGATIVE (NEGATIVE); PHENCYCLIDINE SCREEN,URINE NEGATIVE (NEGATIVE)
[2025-01-27] MEDS: INSULIN humuLIN R 100 UNIT/ML 3ML SQ SCH (21:00)
--- NOTE | 2025-01-27 21:13 | HMCIMG ---
ULTRASOUND VENOUS DOPPLER, BILATERAL LOWER EXTREMITIES INDICATION: Bilateral lower extremity pain and swelling TECHNIQUE: Routine grayscale and color Doppler ultrasound of the bilateral lower extremity veins performed. COMPARISON: No priors. FINDINGS: The demonstrated veins of the bilateral lower extremity including the common femoral vein, femoral vein, and popliteal vein are associated with normal compressibility, augmentation, and flow. Normal respiratory variation was identified. No evidence for echogenic intraluminal thrombus formation. IMPRESSION: No sonographic evidence for deep venous thrombosis within the bilateral lower extremity veins.
[2025-01-27] MEDS: atorVAStatin 40 MG TABLET PO SCH (21:26)
[2025-01-27] MEDS: HEParin 5,000 UNIT VIAL SQ SCH (21:26)
[2025-01-27] MEDS ORDERED: traMADol HCL 50 MG TABLET PO PRN (21:30)
[2025-01-27] MEDS ORDERED: IOHEXOL-350 75 ML VIAL IV ONE (21:42)
--- NOTE | 2025-01-27 22:48 | HMCIMG ---
CT CHEST PE PROTOCOL WWO CONT HISTORY: Pain COMPARISON: None TECHNIQUE: CT angiography of the chest was performed. The study was performed using angiographic technique with maximum intensity projection reconstruction images. Patient was given 75 cc of Omnipaque through intravenous route. FINDINGS: No CT evidence of filling defect is seen to suggest pulmonary embolus. No CT evidence of aortic dissection is seen. No evidence of parenchymal disease is seen. No CT evidence of pleural effusion or pericardial effusion is seen. The heart is enlarged. No evidence of adrenal mass is seen. Degenerative changes of the spine are noted. IMPRESSION: 1. No CT evidence of acute pulmonary embolus is seen. CT was performed with one or more following dose reduction techniques: automated exposure control, adjustment of the mA and kv according to patient's size, or use of a iterative reconstruction technique.
[2025-01-27 23:30] VITALS: BP 144/78; PULSE 70; RESP 18; TEMP 97.6
[2025-01-28 00:30] VITALS: O2SAT 96
[2025-01-28 04:00] VITALS: BP 104/64; PULSE 65; RESP 18; TEMP 98
[2025-01-28 06:24] LABS: BASOPHILS # (AUTO) 0.04 K/uL (0.00-0.20); BASOPHILS % (AUTO) 0.6 % (0.0-5.0); HEMATOCRIT 32.4 % (36-48); IMMATURE GRANULOCYTE ABSOLUTE 0.02 K/uL (0-1); LYMPHOCYTES # (AUTO) 2.7 K/uL (1.0-4.8); LYMPHOCYTES % (AUTO) 43.6 % (21.0-51.0); MEAN CORPUSCULAR HEMOGLOBIN 29.2 pg (27.0-33.0); MEAN CORPUSCULAR VOLUME 88.5 fL (79-99); MONOCYTES # (AUTO) 0.6 K/uL (0.1-1.0); MONOCYTES % (AUTO) 9.5 % (3.0-13.0); NEUTROPHILS # (AUTO) 2.4 K/uL (1.8-7.7); PLATELET COUNT (AUTO) 266 K/uL (130-400); RED BLOOD CELL COUNT(AUTO) 3.66 MIL/uL (4.00-5.50); RED CELL DISTRIBUTION WIDTH 13.6 % (11.0-15.5); WHITE BLOOD COUNT (AUTO) 6.2 K/uL (4.8-10.8)
[2025-01-28 06:29] LABS: POTASSIUM 4.4 mmol/L (3.5-5.1)
[2025-01-28 07:02] LABS: CREATININE 0.9 mg/dL (0.5-1.0); MAGNESIUM 1.8 mg/dL (1.80-2.40); PHOSPHORUS 3.6 mg/dL (2.5-4.9); THYROID STIMULATING HORMONE 1.84 uIU/mL (0.36-3.74)
--- NOTE | 2025-01-28 07:48 | EKG ---
[facility] Test Date: 2025-01-27 Test Time: 16:26:14 Pat Name: AGUSTINA CARROLL Department: [facility] Room: 424 1 Gender: F Hvac Tech: [id number] : 1970 Requested By: SHOSHANA PHAM Order Number: [id number] Reading MD: Tim Del Cid Measurements Intervals [place] Rate: 85 P: 15 NM: 143 QRS: -96 QRSD: 128 T: 5 QT: 385 QTc: 460 Interpretive Statements Sinus rhythm RBBB and LAFB Inferior infarct, old Compared to ECG 08/11/2024 10:54:40 Myocardial infarct finding now present Electronically Signed On 01-29-2025 12:30:51 CDT by Tim Del Cid Please click the below link to view image of tracing.
[2025-01-28 08:00] VITALS: BP 140/79; PULSE 68; RESP 18; TEMP 98.2; O2SAT 97
[2025-01-28] MEDS ORDERED: levoFLOXacin 750 MG/D5W 150 ML 150 ML IV SCH (09:00)
[2025-01-28] MEDS ORDERED: ASPIRIN 81MG CHEW TAB PO SCH (09:00)
[2025-01-28] MEDS ORDERED: FAMOTIDINE 20MG TAB PO SCH (09:00)
--- NOTE | 2025-01-28 09:02 | NUR ---
DCP: HOME Sw met with pt who lives with her mother Josephine Haque [phone]. Pt denies issues affording home, utilities or food. Pt works for [employer] and states she is very active. Ptt independent of ambulation, ADLS and home management. No HH or HD . PCP is kelli Vásquez and she uses [facility] for rx needs. DCP is home with mother Addendum: 01/28/25 at 09 by TERI YING Amended: Links added.
[2025-01-28] MEDS: cloPIDOgrel 75MG TAB PO SCH (09:05)
[2025-01-28] MEDS: LISINOPRIL 10 MG TABLET PO SCH (09:05)
[2025-01-28] MEDS: PANTOPrazole 40 MG TAB DR PO SCH (09:05)
--- NOTE | 2025-01-28 09:11 | EKG ---
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
[2025-01-28 12:00] VITALS: BP 134/83; PULSE 97; RESP 20; TEMP 98.7
--- NOTE | 2025-01-28 12:38 | HMCSR ---
APPROVED REPORT EXAM: Two-dimensional and M-mode echocardiogram with Doppler and color Doppler. INDICATION ICD: Chest Pain 2D Dimensions RVDd3.1 cmLVEF(%)75.0 (>50%)LVED Vol(simp.)51.0 mL IVSd0.6 (0.7-1.1cm)FS(%)43 %LVES Vol(simp.)20.0 mL LVDd4.1 (3.8-5.6cm)LA (2D)3.1 (1.6-4.0cm)LVEF(%, simp.)61 % PWd0.9 (0.7-1.1cm)Ao Root(2D)2.9 (2.0-3.7cm)LA ESV INDEX (BP)18.16 mL/m2 LVDs2.3 (2.5-4.0cm)LVOT diam1.8 (1.8-2.4cm) IVC diam1.7 cm Deformation Strain Apical 4-16.9 % Apical 2-19.6 % Apical 3-19.3 % Global Strain-18.6 % M-Mode Dimensions EPSS0.7 cm LA (MM)3.8 (1.6-4.0cm) Ao Root(MM)2.8 (2.0-3.7cm) Aortic Valve AoV Vmax1.5 m/Renny Peak GR9.3 mmHgLVOT Vmax1.1 m/s AoV VTI0.3 mAo Mean GR4.1 mmHgLVOT VTI0.26 m GLORY (VMAX)2.08 cm2AVA (VTI) 2.1 cm2 Mitral Valve MV E Vmax91.8 cm/sDECEL Qmqr292 ms MV A Kiaq874.6 cm/sP 1/2 T59 ms E/A ratio0.8MVA (PHT)3.7 cm2 TDI E/E' Iemknp62.5E/E' Lateral8.4 Medial E' Peak V6.79 cm/sLateral E' Peak V10.97 cm/s Pulmonary Valve PV Vmax0.9 m/sPV VTI0.19 mPV Mean GR1.7 mmHg PV Peak GR3.0 mmHg Tricuspid Valve TR Vmax2.6 m/sRVSP27.0 mmHg TR Peak GR27.0 mmHg Left Ventricle The left ventricle is normal size. Global strain of -19%. There is normal left ventricular wall thick ness. LVEF is 60-65%. Stage II, diastolic dysfunction. Right Ventricle The right ventricle is normal size. The right ventricular systolic function is normal. Atria The left atrium size is normal. The right atrium size is normal. Aortic Valve The aortic valve is normal in structure. No aortic regurgitation is present. There is no aortic valvu lar stenosis. Mitral Valve The mitral valve is normal in structure. There is no evidence of significant mitral regurgitation. Th ere is no mitral valve stenosis. Tricuspid Valve The tricuspid valve is normal in structure. There is mild tricuspid valve regurgitation noted. Pulmonic Valve The pulmonary valve is normal in structure. There is no pulmonic valvular regurgitation. Great Vessels The aortic root is normal in size. The IVC is normal in size and collapses >50% with inspiration. Pericardium There is no pericardial effusion. Conclusion LVEF is 60-65%. Stage II, diastolic dysfunction. Global strain of -19%.
--- NOTE | 2025-01-28 12:48 | CONS ---
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: Terence Dickson MD Date Patient Seen: January 28, 2025 Requesting Physician: HARSHAD Damon Reason for Consultation: Chest pain History of Present Illness: This is a 54-year-old female with a past medical history of hypertension, dyslipidemia, diabetes mellitus type 2, hypothyroidism, CAD s/p PTCA to a chronically occluded OM 1 vessel and PTCA and stent of the mid LAD with a 2.5 x 24 mm [employer] Promus elite drug-eluting stent on 07/16/2021, for recurrent chest pain, a follow-up cardiac catheterization on 08/31/2021 demonstrated a patent mid LAD stent, and negative standard Wade protocol treadmill stress test on 01/02/2023 who presented to the ED for further evaluation of chest pain. Cardiology has been consulted for chest pain. 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 Accompanying symptoms included diaphoresis and shortness of breath. There were no aggravating factors. She took a sublingual nitroglycerin tablet and called an ambulance. EMS gave her a 2nd dose of sublingual nitroglycerin which resolved her chest pain. Of note, her nitroglycerin vial has been since October 2022. Total chest discomfort lasted less than 30m. Troponin of 11, 12, and 19. EKG demonstrated normal sinus rhythm with a heart rate of 66 bpm with a LAFB and RBBB. Since admission, the patient denies chest pain, chest pressure, palpitations, dizziness, or shortness of breath. D-dimer was elevated at 527. CT of the chest was negative for pulmonary embolism. Bilateral lower extremity venous Doppler was negative for DVT. She states her PCP discontinued Synjardy, glimepiride, carvedilol, and decreased lisinopril to 10 mg daily in 11/2024 and has since felt jittery. Past Medical History: As per HPI and summarized below Past Surgical History: Exploratory laparotomy Cholecystectomy Partial pancreatectomy Family History: The patient's mother was diagnosed with diabetes mellitus type 2. Social History: The patient lives with family. Habits: The patient denies tobacco or illicit drug use but does partake in recreational alcohol consumption. Home Meds: Home medication pending reconciliation Current Meds: Current Medications Medications Dose Ordered Sig/Charito Start Time Stop Time Status Last Admin Levofloxacin/ Dextrose 100 ml @ 100 mls/hr Q24H 01/27/25 18:00 02/06/25 17:59 01/27/25 18:13 Acetaminophen 650 mg Q6H PRN 01/27/25 19:00 02/26/25 18:59 Acetaminophen 650 mg Q6H PRN 01/27/25 19:00 02/26/25 18:59 Lactulose 20 gm Q6H PRN 01/27/25 19:00 02/26/25 18:59 Docusate Sodium 100 mg BID PRN 01/27/25 19:00 02/26/25 18:59 Temazepam 15 mg HS PRN 01/27/25 19:00 02/26/25 18:59 Ondansetron HCl 4 mg Q6H PRN 01/27/25 19:00 02/26/25 18:59 Labetalol HCl 10 mg Q2H PRN 01/27/25 19:00 02/26/25 18:59 Insulin Human Regular INSULIN SLIDING SCAL... ACHS 01/27/25 21:00 02/26/25 20:59 Nitroglycerin 0.4 mg AD PRN 01/27/25 19:00 02/26/25 18:59 Atorvastatin Calcium 40 mg HS 01/27/25 21:00 02/26/25 20:59 01/27/25 21:26 Heparin Sodium (Porcine) 5,000 unit Q12H 01/27/25 19:30 02/26/25 19:29 01/28/25 09:06 Dextrose 50 ml AD PRN 01/27/25 19:30 02/26/25 19:29 Glucagon 1 mg AD PRN 01/27/25 19:30 02/26/25 19:29 Magnesium Sulfate 50 ml @ 0 mls/hr PROTOCOL PRN 01/27/25 19:30 02/26/25 19:29 Potassium Chloride 100 ml @ 100 mls/hr AD PRN 01/27/25 19:30 02/26/25 19:29 Potassium Chloride 10 meq AD PRN 01/27/25 19:30 02/26/25 19:29 Potassium Chloride 10 meq AD PRN 01/27/25 19:30 02/26/25 19:29 Tramadol HCl 50 mg Q6H PRN 01/27/25 21:30 02/01/25 21:29 Lisinopril 10 mg DAILY 01/28/25 09:00 02/27/25 08:59 01/28/25 09:05 Clopidogrel Bisulfate 75 mg DAILY 01/28/25 09:00 02/27/25 08:59 01/28/25 09:05 Pantoprazole Sodium 40 mg DAILY 01/28/25 09:00 02/27/25 08:59 01/28/25 09:05 Review of Systems: CONST: No fever, fatigue, or weight changes. EYES: No recent vision problems. ENT: No congestion, ear pain, or sore throat. C/V: No chest pain, palpitations, or edema. RESP: No cough, congestion, wheezing or shortness of breath. GI: No abdominal pain, nausea, vomiting, constipation, or diarrhea. : No incontinence or dysuria. SKIN: No rash. NEURO: No headache, focal numbness or weakness, dizziness, or seizures. PSYCH: No depression or anxiety. HEME: No abnormal bruising or bleeding. LYMPH: No swollen glands. Physical Examination: GENERAL: No acute distress. HEAD: Normal with no signs of head trauma. EYES: PERRLA, EOMI, conjunctiva and sclera normal. ENT: Hearing grossly intact, normal oropharynx. NECK: Supple without JVD. There is no tenderness, lymphadenopathy, or masses. No thyromegaly. Normal carotid upstrokes without bruits. LUNGS: Clear breath sounds bilaterally. No wheezes, or rhonchi. HEART: Normal rate and rhythm. Normal S1 and S2 without murmurs, gallop or rub. VASC: Peripheral pulses +2 bilaterally. ABD: Bowel sounds normal, soft, nontender, no masses, no organomegaly. No audible bruits. : Not examined LYMPH: No lymphadenopathy noted. EXT: No clubbing, cyanosis or edema. SKIN: No rashes or lesions noted. NEURO: Awake, alert, and oriented x3. No focal sensory or strength deficits noted. Vital Signs (last 8hr) Date Time Temp Pulse Resp B/P (MAP) Pulse Ox O2 Delivery O2 Flow Rate FiO2 01/28/25 12:00 98.8 97 20 134/83 97 Room Air 01/28/25 08:00 97 Room Air* 0 21 01/28/25 08:00 98.2 68 18 140/79 97 Room Air Laboratory: Hematology Labs: Test 01/28/25 05:54 Range/Units White Blood Count 6.2 4.8-10.8 K/uL Red Blood Count 3.66 L 4.00-5.50 MIL/uL Hemoglobin 10.7 L 12.0-16.0 g/dL Hematocrit 32.4 L 36-48 % Mean Corpuscular Volume 88.5 79-99 fL Mean Corpuscular Hemoglobin 29.2 27.0-33.0 pg Mean Corpuscular Hemoglobin Concent 33.0 32.0-36.0 g/dL Red Cell Distribution Width 13.6 11.0-15.5 % Platelet Count 266 130-400 K/uL Mean Platelet Volume 9.8 7.5-10.5 fL Immature Granulocyte % (Auto) 0.3 0-1 % Neutrophils (%) (Auto) 38.0 L 40.0-77.0 % Lymphocytes (%) (Auto) 43.6 21.0-51.0 % Monocytes (%) (Auto) 9.5 3.0-13.0 % Eosinophils (%) (Auto) 8.0 0.0-8.0 % Basophils (%) (Auto) 0.6 0.0-5.0 % Neutrophils # (Auto) 2.4 1.8-7.7 K/uL Lymphocytes # (Auto) 2.7 1.0-4.8 K/uL Monocytes # (Auto) 0.6 0.1-1.0 K/uL Eosinophils # (Auto) 0.50 0.00-0.70 K/uL Basophils # (Auto) 0.04 0.00-0.20 K/uL Absolute Immature Granulocyte (auto 0.02 0-1 K/uL Nucleated Red Blood Cells 0.0 0.0-0.19 % Chemistry Labs: Test 01/28/25 11:24 01/28/25 05:54 01/27/25 20:03 01/27/25 16:25 Range/Units Whole Blood Glucose 87 70-110 MG/DL Sodium Level 140 136-145 mmol/L Potassium Level 4.4 3.5-5.1 mmol/L Chloride Level 106 101-111 mmol/L Carbon Dioxide Level 26 21-32 mmol/L Blood Urea Nitrogen 11 7-18 mg/dL Creatinine 0.9 0.5-1.0 mg/dL Glomerular Filtration Rate Calc 76 >90 mL/min Random Glucose 71 # 70-105 mg/dL Total Calcium 8.9 8.5-10.1 mg/dL Phosphorus Level 3.6 2.5-4.9 mg/dL Magnesium Level 1.80 1.80-2.40 mg/dL Thyroid Stimulating Hormone (TSH) 1.84 # 0.36-3.74 uIU/mL Troponin I High Sensitivity 19 4-50 ng/L Hemoglobin A1c 6.0 4.0-6.0 % Estimated Average Glucose (eAG) 126 70-126 mg/dL B-Type Natriuretic Peptide 29 0-100 pg/mL Coagulation Labs: Test 01/27/25 16:25 Range/Units D-Dimer Quantitative (PE/DVT) 527 *H 0-500 ng/mL Diagnostics / Radiology: Impression and Plan: Angina Elevated d-dimer of 527, r/o PE and BLE DVT Hypertension Dyslipidemia Diabetes mellitus type 2 Hypothyroidism CAD s/p PTCA to a chronically occluded OM 1 vessel and PTCA and stent of the mid LAD with a 2.5 x 24 mm [employer] Promus elite drug-eluting stent on 07/16/2021 For recurrent chest pain, a follow-up cardiac catheterization on 08/31/2021 de monstrated a patent mid LAD stent Negative standard Wade protocol treadmill stress test on 01/02/2023 Aspirin Allergy Angina Troponin of 11, 12, and 19 EKG demonstrated normal sinus rhythm with a heart rate of 66 bpm with a LAFB and RBBB The patient took (10/2022) SL nitroglycerin x1 without resolution of chest discomfort. Symptoms resolved with SL nitro administered by EMS. -Continue atorvastatin 40 mg nightly, plavix 75mg daily, lisinopril 10 mg daily, and carvedilol at a reduced dose of 3.125mg b.i.d. Addendum: The patient has been taken off her beta gayle back in November. He presents now with chest pain similar to what she had prior to her stent placements. Troponins x3 have been normal EKG shows right bundle branch block left axis deviation but no acute ST changes. We have discussed options at this point we would recommend a Lexiscan Cardiolite stress test for risk stratification. If this is a low risk scan she can go home on medical management if this is a high-risk scan we will need to keep her for left heart catheterization. ATTESTATION BY PHYSICIAN I have seen and examined the patient. I reviewed the documentation, medical decision making, and treatment plan as noted by the mid-level provider above. I agree with the findings and plan of care. TIM VILLALTA MD, [facility] January 28, 2025 12:48 TIM VILLALTA MD January 28, 2025 13:03
--- NOTE | 2025-01-28 13:01 | PN ---
[facility] PROGRESS NOTE Date of Service: January 28, 2025 Time of Service: 12:52 SUBJECTIVE: Patient is a 54-year-old female with a history of a DM type 2, HTN, hypercholesteremia, hypothyroidism, CAD s/p heart stents who presented to [facility] via EMS for evaluation of chest pain. According to chart review the patient received nitroglycerin provided by EMS. ED provider reports nitroglycerin sublingually was given in ED also with improvement of chest pain. Troponins in the ED were negative x2. Chest x-ray: No radiographic evidence for any acute cardiopulmonary process. Remarkable lab results: Hemoglobin 11.2, hematocrit 35.0, sodium 132, chloride 99, creatinine 1.1, GFR 60, glucose 221. UA positive for leuk EST, protein, glucose, ketones, blood. In ED the patient received Levaquin and Protonix. ED physician reports that due to the patient's history of a cardiac stents, recent chest pain, and urinary tract infection he would like the patient admitted to the hospital. The patient was admitted by the [facility] team. Cardiology was consulted due to history of cardiac stents and chest pain. 01/28: Patient was seen and examined this morning. Patient reports she is feeling well. Patient denies chest pain, shortness of breath, nausea, vomiting, fever, chills. The patient states that her PCP has recently discontinued some medications. The patient reports having Syngardy and Glimipiride were disconitnued due to a A1C of 5.2 The patient had Lisinopril decreased from 40mg to 10mg. The patient had both Pantoprazole and Famotidine recently discontinued as well. The patient is currently on 10mg of Lisinopril, Monjaro, Atorvastatin, and Montelukast.The patient states that while she was at work, she felt a crushing, pressure like chest pain in the center of her chest that did not radiate. The patient felt relief of her symptoms after taking her Nitroglycerin. The patient reports being on both PPI's for the last two years, however has stopped taking them after being discontinued by her PCP. The patient states that she does not eat fatty foods, and does not experience GERD symptoms. Cardiology has been consulted for her history of cardiac stents and chest pain. A 2D echo was done today, and showed a LVEF of 60-65% with stage 2 diastolic dysfunction and a global stain of -19. We will follow their recommendations, and continue to monitor the patient. REVIEW OF SYSTEMS 12-point ROS reviewed with patient. All pertinent positives mentioned above. Otherwise negative, non-pertinent, or noncontributory. PHYSICAL EXAM GENERAL APPEARANCE: The patient is awake, alert, and oriented, in no acute cardiopulmonary distress. NEUROLOGICAL: Cranial nerves II-XII grossly intact. Motor is 5/5 in bilateral upper and lower extremities proximal to distal. No sensory deficits. HEENT: Face is symmetric. Pupils are equal and reactive. Extraocular movements are intact. NECK: Supple. No JVD. No thyromegaly. No submental, submandibular, pre- /postauricular, occipital or supraclavicular lymphadenopathy. CHEST: Normal chest expansion. No Telemetry. LUNGS: Absence of any rales, rhonchi or any wheezing. CARDIOVASCULAR: Regular. S1 and S2 normal. No appreciable rubs, murmurs or gallops. ABDOMEN: Soft, nontender, and nondistended. There is no rebound, voluntary guarding, or rigidity. : Deferred. No Mtz. EXTREMITIES: Non-edematous and not cyanotic. No clubbing. Good capillary refill. SKIN: No skin breakdown. Vital Signs (last 8hr) Date Time Temp Pulse Resp B/P (MAP) Pulse Ox O2 Delivery O2 Flow Rate FiO2 01/28/25 12:00 98.8 97 20 134/83 97 Room Air 01/28/25 08:00 97 Room Air* 0 21 01/28/25 08:00 98.2 68 18 140/79 97 Room Air LABS: Laboratory: Test 01/28/25 11:24 01/28/25 05:54 01/27/25 20:03 01/27/25 17:00 Range/Units Whole Blood Glucose 87 70-110 MG/DL White Blood Count 6.2 4.8-10.8 K/uL Red Blood Count 3.66 L 4.00-5.50 MIL/uL Hemoglobin 10.7 L 12.0-16.0 g/dL Hematocrit 32.4 L 36-48 % Mean Corpuscular Volume 88.5 79-99 fL Mean Corpuscular Hemoglobin 29.2 27.0-33.0 pg Mean Corpuscular Hemoglobin Concent 33.0 32.0-36.0 g/dL Red Cell Distribution Width 13.6 11.0-15.5 % Platelet Count 266 130-400 K/uL Mean Platelet Volume 9.8 7.5-10.5 fL Immature Granulocyte % (Auto) 0.3 0-1 % Neutrophils (%) (Auto) 38.0 L 40.0-77.0 % Lymphocytes (%) (Auto) 43.6 21.0-51.0 % Monocytes (%) (Auto) 9.5 3.0-13.0 % Eosinophils (%) (Auto) 8.0 0.0-8.0 % Basophils (%) (Auto) 0.6 0.0-5.0 % Neutrophils # (Auto) 2.4 1.8-7.7 K/uL Lymphocytes # (Auto) 2.7 1.0-4.8 K/uL Monocytes # (Auto) 0.6 0.1-1.0 K/uL Eosinophils # (Auto) 0.50 0.00-0.70 K/uL Basophils # (Auto) 0.04 0.00-0.20 K/uL Absolute Immature Granulocyte (auto 0.02 0-1 K/uL Nucleated Red Blood Cells 0.0 0.0-0.19 % Sodium Level 140 136-145 mmol/L Potassium Level 4.4 3.5-5.1 mmol/L Chloride Level 106 101-111 mmol/L Carbon Dioxide Level 26 21-32 mmol/L Blood Urea Nitrogen 11 7-18 mg/dL Creatinine 0.9 0.5-1.0 mg/dL Glomerular Filtration Rate Calc 76 >90 mL/min Random Glucose 71 # 70-105 mg/dL Total Calcium 8.9 8.5-10.1 mg/dL Phosphorus Level 3.6 2.5-4.9 mg/dL Magnesium Level 1.80 1.80-2.40 mg/dL Thyroid Stimulating Hormone (TSH) 1.84 # 0.36-3.74 uIU/mL Troponin I High Sensitivity 19 4-50 ng/L Urine Color YELLOW YELLOW Urine Appearance TURBID CLEAR Urine pH 6.0 5.0-8.0 Urine Specific [place] 1.014 1.001-1.031 Urine Protein 20 H NEGATIVE mg/dL Urine Glucose (UA) >=1000 H NEGATIVE mg/dL Urine Ketones 5 H NEGATIVE mg/dL Urine Occult Blood +- (TRACE) H NEGATIVE Urine Nitrate NEGATIVE NEGATIVE Urine Bilirubin NEGATIVE NEGATIVE mg/dL Urine Urobilinogen 0.2 0.2-1.0 mg/dL Urine Leukocyte Esterase 500 H NEGATIVE Vikki/uL Urine RBC 11-25 H 0-1 /HPF Urine WBC 51-100 H 0-1 /HPF Urine WBC Clumps (Auto) FEW 0-1 /HPF Urine Other Crystals (Auto) 8 None Seen /HPF Urine Bacteria MOD None Seen /HPF Urine Opiates Screen NEGATIVE NEGATIVE Urine Barbiturates Screen NEGATIVE NEGATIVE Urine Phencyclidine Screen NEGATIVE NEGATIVE Urine Amphetamines Screen NEGATIVE NEGATIVE Urine Benzodiazepines Screen NEGATIVE NEGATIVE Urine Cocaine Screen NEGATIVE NEGATIVE Urine Marijuana (THC) Screen NEGATIVE NEGATIVE Test 01/27/25 16:25 Range/Units D-Dimer Quantitative (PE/DVT) 527 *H 0-500 ng/mL Hemoglobin A1c 6.0 4.0-6.0 % Estimated Average Glucose (eAG) 126 70-126 mg/dL B-Type Natriuretic Peptide 29 0-100 pg/mL Current Medications Medications (Trade) Dose Ordered Sig/Charito Route PRN Reason Start Time Stop Time Status Last Admin Dose Admin Acetaminophen (TYLenol 325MG TAB) 650 mg Q6H PRN PO FEVER/MILD PAIN LEVEL 1-3 01/27/25 19:00 02/26/25 18:59 Acetaminophen (TYLenol 650MG SUPPOSITORY) 650 mg Q6H PRN RC FEVER / MILD PAIN 1-3 IF NPO 01/27/25 19:00 02/26/25 18:59 Aspirin (Aspirin 81mg Chew Tab) 81 mg DAILY PO 01/28/25 09:00 01/27/25 18:37 DC Atorvastatin Calcium (LIPItor 40MG) 40 mg HS PO 01/27/25 21:00 02/26/25 20:59 01/27/25 21:26 40 MG Clopidogrel Bisulfate (plaVIX 75MG) 75 mg DAILY PO 01/28/25 09:00 02/27/25 08:59 01/28/25 09:05 75 MG Dextrose (D50w) 50 ml AD PRN IV HYPOGLYCEMIA PROTOCOL 01/27/25 19:30 02/26/25 19:29 Docusate Sodium (COLace 100MG CAP) 100 mg BID PRN PO c 01/27/25 19:00 02/26/25 18:59 Famotidine (Pepcid 20mg Tab) 20 mg DAILY PO 01/28/25 09:00 01/27/25 21:56 DC Glucagon (Glucagon 1mg Kit) 1 mg AD PRN IM HYPOGLYCEMIA PROTOCOL 01/27/25 19:30 02/26/25 19:29 Heparin Sodium (Porcine) (HEParin 5,000 UNIT VIAL) 5,000 unit Q12H SQ 01/27/25 19:30 02/26/25 19:29 01/28/25 09:06 5,000 UNIT Insulin Human Regular (humuLIN R 100 UNIT/ML 3ML) INSULIN SLIDING SCAL... ACHS SQ 01/27/25 21:00 02/26/25 20:59 Labetalol HCl (TRANdate 20MG SYG) 10 mg Q2H PRN IV SBP GREATER THAN 180 01/27/25 19:00 02/26/25 18:59 Lactulose (Constulose 20gm/ 30ml Udcup) 20 gm Q6H PRN PO CONSTIPATION 01/27/25 19:00 02/26/25 18:59 Levofloxacin/ Dextrose 100 ml @ 100 mls/hr Q24H IV 01/27/25 18:00 02/06/25 17:59 01/27/25 18:13 100 MLS/HR Levofloxacin/ Dextrose 150 ml @ 100 mls/hr DAILY IV 01/28/25 09:00 01/27/25 19:20 DC Lisinopril (Prinivil 10mg) 10 mg DAILY PO 01/28/25 09:00 02/27/25 08:59 01/28/25 09:05 10 MG Magnesium Sulfate 50 ml @ 0 mls/hr PROTOCOL PRN IV MAGNESIUM PROTOCOL 01/27/25 19:30 02/26/25 19:29 Nitroglycerin (Nitrostat) 0.4 mg AD PRN SL CHEST PAIN 01/27/25 19:00 02/26/25 18:59 Ondansetron HCl (zoFRAN 4MG INJ) 4 mg Q6H PRN IVP NAUSEA/VOMITING 01/27/25 19:00 02/26/25 18:59 Pantoprazole Sodium (PROTonix 40MG TAB) 40 mg DAILY PO 01/28/25 09:00 02/27/25 08:59 01/28/25 09:05 40 MG Potassium Chloride 100 ml @ 100 mls/hr AD PRN IV POTASSIUM PROTOCOL 01/27/25 19:30 02/26/25 19:29 Potassium Chloride (K-Dur/Klor-Con 20meq) 10 meq AD PRN PO POTASSIUM PROTOCOL 01/27/25 19:30 02/26/25 19:29 Potassium Chloride (KCl 10% Elixir 20meq/15ml) 10 meq AD PRN PO POTASSIUM PROTOCOL 01/27/25 19:30 02/26/25 19:29 Temazepam (restORIL 15 MG CAP) 15 mg HS PRN PO INSOMNIA/SLEEP 01/27/25 19:00 02/26/25 18:59 Tramadol HCl (UltRAM) 50 mg Q6H PRN PO PAIN LEVEL 7 TO 10 01/27/25 21:30 02/01/25 21:29 DIAGNOSTICS / RADIOLOGY: [address] [address] IMAGING REPORT Signed PATIENT: AGUSTINA CARROLL MR#: [id number] : 1970 SEX: F AGE: 54 LOCATION: 4DH ORDER 36 STATUS: ADM IN REPORT#: [id number] SERVICE 31 REASON: Chest pain hx cardiac stent ORDERING PHYSICIAN: SAI SERVIN PROCEDURE: ECHO CMP - ECHO 2-D COMPLETE APPROVED REPORT EXAM: Two-dimensional and M-mode echocardiogram with Doppler and color Doppler. INDICATION ICD: Chest Pain 2D Dimensions RVDd 3.1 cm LVEF(%) 75.0 (>50%) LVED Vol(simp.) 51.0 mL IVSd 0.6 (0.7-1.1cm) FS(%) 43 % LVES Vol(simp.) 20.0 mL LVDd 4.1 (3.8-5.6cm) LA (2D) 3.1 (1.6-4.0cm) LVEF(%, simp.) 61 % PWd 0.9 (0.7-1.1cm) Ao Root(2D) 2.9 (2.0-3.7cm) LA ESV INDEX (BP) 18.16 mL/m2 LVDs 2.3 (2.5-4.0cm) LVOT diam 1.8 (1.8-2.4cm) IVC diam 1.7 cm Deformation Strain Apical 4 -16.9 % Apical 2 -19.6 % Apical 3 -19.3 % Global Strain -18.6 % M-Mode Dimensions EPSS 0.7 cm LA (MM) 3.8 (1.6-4.0cm) Ao Root(MM) 2.8 (2.0-3.7cm) Aortic Valve AoV Vmax 1.5 m/s Ao Peak GR 9.3 mmHg LVOT Vmax 1.1 m/s AoV VTI 0.3 m Ao Mean GR 4.1 mmHg LVOT VTI 0.26 m GLORY (VMAX) 2.08 cm2 GLORY (VTI) 2.1 cm2 Mitral Valve MV E Vmax 91.8 cm/s DECEL Time 171 ms MV A Vmax 108.6 cm/s P 1/2 T 59 ms E/A ratio 0.8 MVA (PHT) 3.7 cm2 TDI E/E' Medial 13.5 E/E' Lateral 8.4 Medial E' Peak V 6.79 cm/s Lateral E' Peak V 10.97 cm/s Pulmonary Valve PV Vmax 0.9 m/s PV VTI 0.19 m PV Mean GR 1.7 mmHg PV Peak GR 3.0 mmHg Tricuspid Valve TR Vmax 2.6 m/s RVSP 27.0 mmHg TR Peak GR 27.0 mmHg Left Ventricle The left ventricle is normal size. Global strain of -19%. There is normal left ventricular wall thickness. LVEF is 60-65%. Stage II, diastolic dysfunction. Right Ventricle The right ventricle is normal size. The right ventricular systolic function is normal. Atria The left atrium size is normal. The right atrium size is normal. Aortic Valve The aortic valve is normal in structure. No aortic regurgitation is present. There is no aortic valvular stenosis. Mitral Valve The mitral valve is normal in structure. There is no evidence of significant mitral regurgitation. There is no mitral valve stenosis. Tricuspid Valve The tricuspid valve is normal in structure. There is mild tricuspid valve regurgitation noted. Pulmonic Valve The pulmonary valve is normal in structure. There is no pulmonic valvular regurgitation. Great Vessels The aortic root is normal in size. The IVC is normal in size and collapses >50% with inspiration. Pericardium There is no pericardial effusion. Conclusion LVEF is 60-65%. Stage II, diastolic dysfunction. Global strain of -19%. DICTATED BY: AIDAN VILLALTA MD DATE: 01/28/25807 ELECTRONICALLY SIGNED BY: AIDAN VILLALTA MD DATE: 01/28/25 1238 [place] [id number] [id number] IMAGING REPORT Signed PATIENT: AGUSTINA CARROLL MR#: [id number] : 1970 SEX: F AGE: 54 LOCATION: EDHIP ORDER 32 STATUS: ADM IN REPORT#: [id number] SERVICE 28 REASON: ELEVATED DDIM, CHEST PAIN ORDERING PHYSICIAN: CITLALI IRENE MD PROCEDURE: VENOUS JERMAINE - US VENOUS DOPPLER BILATERAL ULTRASOUND VENOUS DOPPLER, BILATERAL LOWER EXTREMITIES INDICATION: Bilateral lower extremity pain and swelling TECHNIQUE: Routine grayscale and color Doppler ultrasound of the bilateral lower extremity veins performed. COMPARISON: No priors. FINDINGS: The demonstrated veins of the bilateral lower extremity including the common femoral vein, femoral vein, and popliteal vein are associated with normal compressibility, augmentation, and flow. Normal respiratory variation was identified. No evidence for echogenic intraluminal thrombus formation. IMPRESSION: No sonographic evidence for deep venous thrombosis within the bilateral lower extremity veins. DICTATED BY: AUSTIN REYES MD DATE: 01/27/252109 ELECTRONICALLY SIGNED BY: AUSTIN REYES MD DATE: 01/27/252112 [place] [address] [id number] IMAGING REPORT Signed PATIENT: AGUSTINA CARROLL MR#: [id number] : 1970 SEX: F AGE: 54 LOCATION: EDHIP ORDER 29 STATUS: ADM IN REPORT#: [id number] SERVICE 27 REASON: PAIN, ELEVATED DDIM ORDERING PHYSICIAN: CITLALI IRENE MD PROCEDURE: CHES PE - CT CHEST PE PROTOCOL WWO CONT CT CHEST PE PROTOCOL WWO CONT HISTORY: Pain COMPARISON: None TECHNIQUE: CT angiography of the chest was performed. The study was performed using angiographic technique with maximum intensity projection reconstruction images. Patient was given 75 cc of Omnipaque through intravenous route. FINDINGS: No CT evidence of filling defect is seen to suggest pulmonary embolus. No CT evidence of aortic dissection is seen. No evidence of parenchymal disease is seen. No CT evidence of pleural effusion or pericardial effusion is seen. The heart is enlarged. No evidence of adrenal mass is seen. Degenerative changes of the spine are noted. IMPRESSION: 1. No CT evidence of acute pulmonary embolus is seen. CT was performed with one or more following dose reduction techniques: automated exposure control, adjustment of the mA and kv according to patient's size, or use of a iterative reconstruction technique. DICTATED BY: FAIZA MORALES MD DATE: 01/27/252243 ELECTRONICALLY SIGNED BY: FAIZA MORALES MD DATE: 01/27/252247 [place] [address] IMAGING REPORT Signed PATIENT: AGUSTINA CARROLL MR#: [id number] : 1970 SEX: F AGE: 54 LOCATION: [facility] ORDER 12 STATUS: [facility] REPORT#: [id number] SERVICE 11 REASON: CHEST PAIN ORDERING PHYSICIAN: SHOSHANA PHAM MD PROCEDURE: CXR1VW - CHEST 1VW PORTABLE CHEST RADIOGRAPH INDICATION: CHEST PAIN COMPARISON: 08/11/2024 FINDINGS: Heart size is normal. The pulmonary vascularity and zoë appear normal. No abnormal pulmonary parenchymal opacity or consolidation identified. No significant pleural effusion noted. No pneumothorax detected. IMPRESSION: No radiographic evidence for any acute cardiopulmonary process. DICTATED BY: AUSTIN REYES MD DATE: 01/27/251725 ELECTRONICALLY SIGNED BY: AUSTIN REYES MD DATE: 01/27/251728 ASSESSMENT: Acute chest pain with high risk cardiac etiology r/o ACS, x2 negative troponins Acute complicated cystitis, POA Anemia of chronic disease Electrolyte derangement (hyponatremia, hypochloremia) Acute kidney injury, GFR 60 Acute on chronic kidney disease stage 2, (GFR on 06/15- 08/15 range 67-76) Diabetes mellitus with hyperglycemia Proteinuria, glucosuria, ketonuria, hematuria, per UA 01/27/25 Chronic problem list: DM type 2, HTN, hypercholesteremia, hypothyroidism, CAD s/p heart stents PLAN: Acute chest pain with high risk cardiac etiology -Troponin negative x2 -Admit to medical floor with continuous telemetry monitoring. -Cardiology consult in the am. We will follow their recommendations. -2D echo: LVEF 60-65% with stage 2 diastolic dysfunction. -Oxygen supplement as needed to maintain oxygen levels equal to or greater than 92% -Nitroglycerin sublingual as needed chest pain -No Aspirin administered because patient reports allergies to aspirin. -Atorvastatin 40 mg PO daily. -Blood pressure checks every 4 hours and as needed. -Continue Levaquin 750 mg IV daily for positive UTI. -Follow urine cultures, antibiotic tailored to cultures, deescalate antibiotics when appropriate. -Start patient's home medications Plavix, lisinopril, atorvastatin, Protonix. -monitor for hypoglycemia. -Glucometer checks before meals and at bedtime with 1/2 insulin regular sliding scale p.r.n.. -Monitor renal and liver function. -Monitor electrolytes and treat accordingly. -DVT and GI prophylaxis: Heparin and Protonix -Pending CT PE protocol and bilat venous dropper of lower extremities. All tests came back negative. This plan has been reviewed and approved by my attending, Dr. Josep Aguilar. YULIA BROCK MD January 28, 2025 13:01
[2025-01-28 16:00] VITALS: BP 134/84; PULSE 69; RESP 20; TEMP 98
[2025-01-28 20:00] VITALS: BP 139/73; PULSE 63; RESP 17; TEMP 97.6; O2SAT 99
[2025-01-28] MEDS: carVEDIlol 3.125 MG TABLET PO SCH (21:16)
[2025-01-29] VITALS (8 sets, daily range): BP systolic 91–125; BP diastolic 57–75; PULSE 63–73; RESP 17–20; TEMP 97.7–98.4; O2SAT 97–100
[2025-01-29 05:41] LABS: BASOPHILS # (AUTO) 0.04 K/uL (0.00-0.20); BASOPHILS % (AUTO) 0.7 % (0.0-5.0); EOSINOPHILS # (AUTO) 0.55 K/uL (0.00-0.70); HEMATOCRIT 33.7 % (36-48); LYMPHOCYTES # (AUTO) 2.7 K/uL (1.0-4.8); LYMPHOCYTES % (AUTO) 48.7 % (21.0-51.0); MEAN CORPUSCULAR HEMOGLOBIN 29.6 pg (27.0-33.0); MEAN CORPUSCULAR HGB CONC 32.9 g/dL (32.0-36.0); MEAN CORPUSCULAR VOLUME 89.9 fL (79-99); MONOCYTES # (AUTO) 0.4 K/uL (0.1-1.0); NEUTROPHILS # (AUTO) 1.8 K/uL (1.8-7.7); NEUTROPHILS % (AUTO) 32.6 % (40.0-77.0); PLATELET COUNT (AUTO) 249 K/uL (130-400); RED BLOOD CELL COUNT(AUTO) 3.75 MIL/uL (4.00-5.50); RED CELL DISTRIBUTION WIDTH 13.3 % (11.0-15.5); WHITE BLOOD COUNT (AUTO) 5.5 K/uL (4.8-10.8)
[2025-01-29 05:53] LABS: ALBUMIN 3.1 g/dL (3.5-5.0); BILIRUBIN,TOTAL 0.2 mg/dL (0.2-1.0); CREATININE 0.2 mg/dL (0.5-1.0); POTASSIUM 4.7 mmol/L (3.5-5.1); TOTAL PROTEIN, SERUM 6.7 g/dL (6.0-8.3)
--- NOTE | 2025-01-29 09:43 | PN ---
[facility] CARDIOLOGY PROGRESS NOTE Cardiology progress note dictated for Cosme Dickson MD Date Patient Seen: January 29, 2025 Interval History: This is a 54-year-old female with a past medical history of hypertension, dyslipidemia, diabetes mellitus type 2, hypothyroidism, CAD s/p PTCA to a chronically occluded OM 1 vessel and PTCA and stent of the mid LAD with a 2.5 x 24 mm [place] scientific Promus elite drug-eluting stent on 07/16/2021, for recurrent chest pain, a follow-up cardiac catheterization on 08/31/2021 demonstrated a patent mid LAD stent, and negative standard Wade protocol treadmill stress test on 01/02/2023 who presented to the ED for further e valuation of chest pain. Cardiology has been consulted for chest pain. 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 Accompanying symptoms included diaphoresis and shortness of breath. There were no aggravating factors. She took a sublingual nitroglycerin tablet and called an ambulance. EMS gave her a 2nd dose of sublingual nitroglycerin which resolved her chest pain. Of note, her nitroglycerin vial has been since October 2022. Total chest discomfort lasted less than 30m. Troponin of 11, 12, and 19. EKG demonstrated normal sinus rhythm with a heart rate of 66 bpm with a LAFB and RBBB. D-dimer was elevated at 527. CT of the chest was negative for pulmonary embolism. Bilateral lower extremity venous Doppler was negative for DVT. Since admission, the patient denies chest pain, chest pressure, palpitations, dizziness, or shortness of breath. She is pending to undergo a Lexiscan stress test today. Physical Examination: GENERAL: No acute distress. HEAD: Normal with no signs of head trauma. EYES: PERRLA, EOMI, conjunctiva and sclera normal. NECK: Supple without JVD. There is no tenderness, lymphadenopathy, or masses. No thyromegaly. Normal carotid upstrokes without bruits. LUNGS: Clear breath sounds bilaterally. No wheezes, or rhonchi. HEART: Normal rate and rhythm. Normal S1 and S2 without murmurs, gallop or rub. VASC: Peripheral pulses +2 bilaterally. EXT: No clubbing, cyanosis or edema. NEURO: Awake, alert, and oriented x3. No focal neurological deficits noted. Laboratory: Hematology Labs: Test 01/29/25 05:27 Range/Units White Blood Count 5.5 4.8-10.8 K/uL Red Blood Count 3.75 L 4.00-5.50 MIL/uL Hemoglobin 11.1 L 12.0-16.0 g/dL Hematocrit 33.7 L 36-48 % Mean Corpuscular Volume 89.9 79-99 fL Mean Corpuscular Hemoglobin 29.6 27.0-33.0 pg Mean Corpuscular Hemoglobin Concent 32.9 32.0-36.0 g/dL Red Cell Distribution Width 13.3 11.0-15.5 % Platelet Count 249 130-400 K/uL Mean Platelet Volume 9.7 7.5-10.5 fL Immature Granulocyte % (Auto) 0.0 0-1 % Neutrophils (%) (Auto) 32.6 L 40.0-77.0 % Lymphocytes (%) (Auto) 48.7 21.0-51.0 % Monocytes (%) (Auto) 8.0 3.0-13.0 % Eosinophils (%) (Auto) 10.0 H 0.0-8.0 % Basophils (%) (Auto) 0.7 0.0-5.0 % Neutrophils # (Auto) 1.8 1.8-7.7 K/uL Lymphocytes # (Auto) 2.7 1.0-4.8 K/uL Monocytes # (Auto) 0.4 0.1-1.0 K/uL Eosinophils # (Auto) 0.55 0.00-0.70 K/uL Basophils # (Auto) 0.04 0.00-0.20 K/uL Absolute Immature Granulocyte (auto 0.00 0-1 K/uL Nucleated Red Blood Cells 0.0 0.0-0.19 % Chemistry Labs: Test 01/29/25 05:35 01/29/25 05:27 01/28/25 05:54 01/27/25 20:03 Range/Units Whole Blood Glucose 90 70-110 MG/DL Sodium Level 140 136-145 mmol/L Potassium Level 4.7 3.5-5.1 mmol/L Chloride Level 107 101-111 mmol/L Carbon Dioxide Level 29 21-32 mmol/L Blood Urea Nitrogen 10 7-18 mg/dL Creatinine 0.2 L 0.5-1.0 mg/dL Glomerular Filtration Rate Calc 139 >90 mL/min Random Glucose 95 70-105 mg/dL Lactic Acid Level 1.5 0.8-2.5 mmol/L Total Calcium 8.9 8.5-10.1 mg/dL Total Bilirubin 0.2 0.2-1.0 mg/dL Aspartate Amino Transf (AST/SGOT) 25 10-37 U/L Alanine Aminotransferase (ALT/SGPT) 42 12-78 U/L Alkaline Phosphatase 82 50-136 U/L Total Protein 6.7 6.0-8.3 g/dL Albumin 3.1 L 3.5-5.0 g/dL Phosphorus Level 3.6 2.5-4.9 mg/dL Magnesium Level 1.80 1.80-2.40 mg/dL Thyroid Stimulating Hormone (TSH) 1.84 # 0.36-3.74 uIU/mL Troponin I High Sensitivity 19 4-50 ng/L Test 01/27/25 16:25 Range/Units Hemoglobin A1c 6.0 4.0-6.0 % Estimated Average Glucose (eAG) 126 70-126 mg/dL B-Type Natriuretic Peptide 29 0-100 pg/mL Coagulation Labs: Test 01/27/25 16:25 Range/Units D-Dimer Quantitative (PE/DVT) 527 *H 0-500 ng/mL Diagnostics / Radiology: 2D echocardiogram on 01/28/2025 Conclusion LVEF is 60-65%. Stage II, diastolic dysfunction. Global strain of -19%. DICTATED BY: AIDAN VILLALTA MD DATE: 01/28/25 0808 Impression and Plan: Unstable Angina pectoris: CAD status post remote PTCA and stenting of the mid LAD 07/16/2021 with a 2.5 x 24 mm [place] scientific Promus elite MARQUITA and balloon angioplasty to a chronically occluded OM1 with follow-up cardiac catheterization 08/31/2021 demonstrating a widely patent stent and a 50% stenosis at the balloon angioplasty site at the mid to distal OM1: Troponin of 11, 12, and 19, EKG with no acute ST changes and a RBBB -Continue atorvastatin 40 mg nightly, clopidogrel 75mg daily, lisinopril 10 mg daily -Lexiscan stress test today, if low risk scan she may go home on medical management. If it is a high-risk scan we will need to keep her for a left heart catheterization. -Further recommendations pending Lexiscan stress test results -resume carvedilol 6.25 mg p.o. b.i.d. (discontinued previously) -begin isosorbide mono ER 60 mg p.o. daily ASPIRIN ALLERGIC: -continue clopidogrel 75 mg p.o. daily 2D echo on 01/28/2025 with an EF of 60-65%, stage II diastolic dysfunction, and a global strain of -19% Comorbidities: Hypertension Dyslipidemia Diabetes mellitus type 2 Hypothyroidism CAD s/p PTCA to a chronically occluded OM 1 vessel and PTCA and stent of the mid LAD with a 2.5 x 24 mm [place] scientific Promus elite drug-eluting stent on For recurrent chest pain, a follow-up cardiac catheterization on 08/31/2021 demonstrated a patent mid LAD stent Negative standard Wade protocol treadmill stress test on 01/02/2023 Aspirin Allergy PHYSICIAN ATTESTATION OF PHYSICIAN DIRECTOR TECHNICAL DOCUMENTATION: I attest that I was physically present for the otto portions of the service and evaluated the patient with the Physician Certified Master Locksmith, and I reviewed and discussed the case with the Physician Certified Master Locksmith and made modifications to the Physician Certified Master Locksmith's findings and plans of care as documented above AZEB BREEN January 29, 2025 09:43 COSME DICKSON MD January 29, 2025 12:32
--- NOTE | 2025-01-29 14:02 | PN ---
[facility] PROGRESS NOTE Date of Service: January 29, 2025 Time of Service: 14:02 SUBJECTIVE: Patient is a 54-year-old female with a history of a DM type 2, HTN, hypercholesteremia, hypothyroidism, CAD s/p heart stents who presented to [facility] via EMS for evaluation of chest pain. According to chart review the patient received nitroglycerin provided by EMS. ED provider reports nitroglycerin sublingually was given in ED also with improvement of chest pain. Troponins in the ED were negative x2. Chest x-ray: No radiographic evidence for any acute cardiopulmonary process. Remarkable lab results: Hemoglobin 11.2, hematocrit 35.0, sodium 132, chloride 99, creatinine 1.1, GFR 60, glucose 221. UA positive for leuk EST, protein, glucose, ketones, blood. In ED the patient received Levaquin and Protonix. ED physician reports that due to the patient's history of a cardiac stents, recent chest pain, and urinary tract infection he would like the patient admitted to the hospital. The patient was admitted by the [facility] team. Cardiology was consulted due to history of cardiac stents and chest pain. 01/28: Patient was seen and examined this morning. Patient reports she is feeling well. Patient denies chest pain, shortness of breath, nausea, vomiting, fever, chills. The patient states that her PCP has recently discontinued some medications. The patient reports having Syngardy and Glimipiride were disconitnued due to a A1C of 5.2 The patient had Lisinopril decreased from 40mg to 10mg. The patient had both Pantoprazole and Famotidine recently discontinued as well. The patient is currently on 10mg of Lisinopril, Monjaro, Atorvastatin, and Montelukast.The patient states that while she was at work, she felt a crushing, pressure like chest pain in the center of her chest that did not radiate. The patient felt relief of her symptoms after taking her Nitroglycerin. The patient reports being on both PPI's for the last two years, however has stopped taking them after being discontinued by her PCP. The patient states that she does not eat fatty foods, and does not experience GERD symptoms. Cardiology has been consulted for her history of cardiac stents and chest pain. A 2D echo was done today, and showed a LVEF of 60-65% with stage 2 diastolic dysfunction and a global stain of -19. We will follow their recommendations, and continue to monitor the patient. 01/29 patient was seen and examined. She denies any chest pain or shortness for breath. She had her cardiac stress test and we will wait on the results of that REVIEW OF SYSTEMS 12-point ROS reviewed with patient. All pertinent positives mentioned above. Otherwise negative, non-pertinent, or noncontributory. PHYSICAL EXAM GENERAL APPEARANCE: The patient is awake, alert, and oriented, in no acute cardiopulmonary distress. NEUROLOGICAL: Cranial nerves II-XII grossly intact. Motor is 5/5 in bilateral upper and lower extremities proximal to distal. No sensory deficits. HEENT: Face is symmetric. Pupils are equal and reactive. Extraocular movements are intact. NECK: Supple. No JVD. No thyromegaly. No submental, submandibular, pre- /postauricular, occipital or supraclavicular lymphadenopathy. CHEST: Normal chest expansion. No Telemetry. LUNGS: Absence of any rales, rhonchi or any wheezing. CARDIOVASCULAR: Regular. S1 and S2 normal. No appreciable rubs, murmurs or gallops. ABDOMEN: Soft, nontender, and nondistended. There is no rebound, voluntary guarding, or rigidity. : Deferred. No Mtz. EXTREMITIES: Non-edematous and not cyanotic. No clubbing. Good capillary refill. SKIN: No skin breakdown. Vital Signs (last 8hr) Date Time Temp Pulse Resp B/P (MAP) Pulse Ox O2 Delivery O2 Flow Rate FiO2 01/29/25 11:43 98.1 68 18 106/70 99 Room Air 01/29/25 09:19 112/69 01/29/25 08:00 100 Room Air* 0 21 01/29/25 07:39 97.9 67 20 112/69 100 Room Air LABS: Laboratory: Test 01/29/25 11:07 01/29/25 05:27 01/28/25 05:54 01/27/25 20:03 Range/Units Whole Blood Glucose 84 70-110 MG/DL White Blood Count 5.5 4.8-10.8 K/uL Red Blood Count 3.75 L 4.00-5.50 MIL/uL Hemoglobin 11.1 L 12.0-16.0 g/dL Hematocrit 33.7 L 36-48 % Mean Corpuscular Volume 89.9 79-99 fL Mean Corpuscular Hemoglobin 29.6 27.0-33.0 pg Mean Corpuscular Hemoglobin Concent 32.9 32.0-36.0 g/dL Red Cell Distribution Width 13.3 11.0-15.5 % Platelet Count 249 130-400 K/uL Mean Platelet Volume 9.7 7.5-10.5 fL Immature Granulocyte % (Auto) 0.0 0-1 % Neutrophils (%) (Auto) 32.6 L 40.0-77.0 % Lymphocytes (%) (Auto) 48.7 21.0-51.0 % Monocytes (%) (Auto) 8.0 3.0-13.0 % Eosinophils (%) (Auto) 10.0 H 0.0-8.0 % Basophils (%) (Auto) 0.7 0.0-5.0 % Neutrophils # (Auto) 1.8 1.8-7.7 K/uL Lymphocytes # (Auto) 2.7 1.0-4.8 K/uL Monocytes # (Auto) 0.4 0.1-1.0 K/uL Eosinophils # (Auto) 0.55 0.00-0.70 K/uL Basophils # (Auto) 0.04 0.00-0.20 K/uL Absolute Immature Granulocyte (auto 0.00 0-1 K/uL Nucleated Red Blood Cells 0.0 0.0-0.19 % Sodium Level 140 136-145 mmol/L Potassium Level 4.7 3.5-5.1 mmol/L Chloride Level 107 101-111 mmol/L Carbon Dioxide Level 29 21-32 mmol/L Blood Urea Nitrogen 10 7-18 mg/dL Creatinine 0.2 L 0.5-1.0 mg/dL Glomerular Filtration Rate Calc 139 >90 mL/min Random Glucose 95 70-105 mg/dL Lactic Acid Level 1.5 0.8-2.5 mmol/L Total Calcium 8.9 8.5-10.1 mg/dL Total Bilirubin 0.2 0.2-1.0 mg/dL Aspartate Amino Transf (AST/SGOT) 25 10-37 U/L Alanine Aminotransferase (ALT/SGPT) 42 12-78 U/L Alkaline Phosphatase 82 50-136 U/L Total Protein 6.7 6.0-8.3 g/dL Albumin 3.1 L 3.5-5.0 g/dL Phosphorus Level 3.6 2.5-4.9 mg/dL Magnesium Level 1.80 1.80-2.40 mg/dL Thyroid Stimulating Hormone (TSH) 1.84 # 0.36-3.74 uIU/mL Troponin I High Sensitivity 19 4-50 ng/L Test 01/27/25 17:00 01/27/25 16:25 Range/Units Urine Color YELLOW YELLOW Urine Appearance TURBID CLEAR Urine pH 6.0 5.0-8.0 Urine Specific Hustle 1.014 1.001-1.031 Urine Protein 20 H NEGATIVE mg/dL Urine Glucose (UA) >=1000 H NEGATIVE mg/dL Urine Ketones 5 H NEGATIVE mg/dL Urine Occult Blood +- (TRACE) H NEGATIVE Urine Nitrate NEGATIVE NEGATIVE Urine Bilirubin NEGATIVE NEGATIVE mg/dL Urine Urobilinogen 0.2 0.2-1.0 mg/dL Urine Leukocyte Esterase 500 H NEGATIVE Vikki/uL Urine RBC 11-25 H 0-1 /HPF Urine WBC 51-100 H 0-1 /HPF Urine WBC Clumps (Auto) FEW 0-1 /HPF Urine Other Crystals (Auto) 8 None Seen /HPF Urine Bacteria MOD None Seen /HPF Urine Opiates Screen NEGATIVE NEGATIVE Urine Barbiturates Screen NEGATIVE NEGATIVE Urine Phencyclidine Screen NEGATIVE NEGATIVE Urine Amphetamines Screen NEGATIVE NEGATIVE Urine Benzodiazepines Screen NEGATIVE NEGATIVE Urine Cocaine Screen NEGATIVE NEGATIVE Urine Marijuana (THC) Screen NEGATIVE NEGATIVE D-Dimer Quantitative (PE/DVT) 527 *H 0-500 ng/mL Hemoglobin A1c 6.0 4.0-6.0 % Estimated Average Glucose (eAG) 126 70-126 mg/dL B-Type Natriuretic Peptide 29 0-100 pg/mL Current Medications Medications (Trade) Dose Ordered Sig/Charito Route PRN Reason Start Time Stop Time Status Last Admin Dose Admin Acetaminophen (TYLenol 325MG TAB) 650 mg Q6H PRN PO FEVER/MILD PAIN LEVEL 1-3 01/27/25 19:00 02/26/25 18:59 Acetaminophen (TYLenol 650MG SUPPOSITORY) 650 mg Q6H PRN RC FEVER / MILD PAIN 1-3 IF NPO 01/27/25 19:00 02/26/25 18:59 Aspirin (Aspirin 81mg Chew Tab) 81 mg DAILY PO 01/28/25 09:00 01/27/25 18:37 DC Atorvastatin Calcium (LIPItor 40MG) 40 mg HS PO 01/27/25 21:00 02/26/25 20:59 01/28/25 21:16 40 MG Carvedilol (Coreg 3.125MG) 3.125 mg BID PO 01/28/25 21:00 01/29/25 12:29 DC 01/29/25 09:19 3.125 MG Carvedilol (Coreg 3.125MG) 6.25 mg BID PO 01/29/25 21:00 02/28/25 20:59 Clopidogrel Bisulfate (plaVIX 75MG) 75 mg DAILY PO 01/28/25 09:00 02/27/25 08:59 01/29/25 09:19 75 MG Dextrose (D50w) 50 ml AD PRN IV HYPOGLYCEMIA PROTOCOL 01/27/25 19:30 02/26/25 19:29 Docusate Sodium (COLace 100MG CAP) 100 mg BID PRN PO c 01/27/25 19:00 02/26/25 18:59 Famotidine (Pepcid 20mg Tab) 20 mg DAILY PO 01/28/25 09:00 01/27/25 21:56 DC Glucagon (Glucagon 1mg Kit) 1 mg AD PRN IM HYPOGLYCEMIA PROTOCOL 01/27/25 19:30 02/26/25 19:29 Heparin Sodium (Porcine) (HEParin 5,000 UNIT VIAL) 5,000 unit Q12H SQ 01/27/25 19:30 02/26/25 19:29 01/29/25 09:32 5,000 UNIT Insulin Human Regular (humuLIN R 100 UNIT/ML 3ML) INSULIN SLIDING SCAL... ACHS SQ 01/27/25 21:00 02/26/25 20:59 Isosorbide Mononitrate (Imdur 30mg Sr) 60 mg DAILY PO 01/29/25 12:30 02/28/25 12:29 Labetalol HCl (TRANdate 20MG SYG) 10 mg Q2H PRN IV SBP GREATER THAN 180 01/27/25 19:00 02/26/25 18:59 Lactulose (Constulose 20gm/ 30ml Udcup) 20 gm Q6H PRN PO CONSTIPATION 01/27/25 19:00 02/26/25 18:59 Levofloxacin/ Dextrose 100 ml @ 100 mls/hr Q24H IV 01/27/25 18:00 02/06/25 17:59 01/28/25 17:40 100 MLS/HR Levofloxacin/ Dextrose 150 ml @ 100 mls/hr DAILY IV 01/28/25 09:00 01/27/25 19:20 DC Lisinopril (Prinivil 10mg) 10 mg DAILY PO 01/28/25 09:00 02/27/25 08:59 01/28/25 09:05 10 MG Magnesium Sulfate 50 ml @ 0 mls/hr PROTOCOL PRN IV MAGNESIUM PROTOCOL 01/27/25 19:30 02/26/25 19:29 Nitroglycerin (Nitrostat) 0.4 mg AD PRN SL CHEST PAIN 01/27/25 19:00 02/26/25 18:59 Ondansetron HCl (zoFRAN 4MG INJ) 4 mg Q6H PRN IVP NAUSEA/VOMITING 01/27/25 19:00 02/26/25 18:59 Pantoprazole Sodium (PROTonix 40MG TAB) 40 mg DAILY PO 01/28/25 09:00 02/27/25 08:59 01/29/25 09:19 40 MG Potassium Chloride 100 ml @ 100 mls/hr AD PRN IV POTASSIUM PROTOCOL 01/27/25 19:30 02/26/25 19:29 Potassium Chloride (K-Dur/Klor-Con 20meq) 10 meq AD PRN PO POTASSIUM PROTOCOL 01/27/25 19:30 02/26/25 19:29 Potassium Chloride (KCl 10% Elixir 20meq/15ml) 10 meq AD PRN PO POTASSIUM PROTOCOL 01/27/25 19:30 02/26/25 19:29 Temazepam (restORIL 15 MG CAP) 15 mg HS PRN PO INSOMNIA/SLEEP 01/27/25 19:00 02/26/25 18:59 Tramadol HCl (UltRAM) 50 mg Q6H PRN PO PAIN LEVEL 7 TO 10 01/27/25 21:30 02/01/25 21:29 DIAGNOSTICS / RADIOLOGY: [ ] ASSESSMENT: Acute chest pain with high risk cardiac etiology r/o ACS, x2 negative troponins Acute complicated cystitis, POA Anemia of chronic disease Electrolyte derangement (hyponatremia, hypochloremia) Acute kidney injury, GFR 60 Acute on chronic kidney disease stage 2, (GFR on 06/15- 08/15 range 67-76) Diabetes mellitus with hyperglycemia Proteinuria, glucosuria, ketonuria, hematuria, per UA 01/27/25 Chronic problem list: DM type 2, HTN, hypercholesteremia, hypothyroidism, CAD s/p heart stents PLAN: Acute chest pain with high risk cardiac etiology -Troponin negative x2 -Admit to medical floor with continuous telemetry monitoring. -Cardiology consult in the am. We will follow their recommendations. -2D echo: LVEF 60-65% with stage 2 diastolic dysfunction. -Oxygen supplement as needed to maintain oxygen levels equal to or greater than 92% -Nitroglycerin sublingual as needed chest pain -No Aspirin administered because patient reports allergies to aspirin. -Atorvastatin 40 mg PO daily. -Blood pressure checks every 4 hours and as needed. -Continue Levaquin 750 mg IV daily for positive UTI. -Follow urine cultures, antibiotic tailored to cultures, deescalate antibiotics when appropriate. -Start patient's home medications Plavix, lisinopril, atorvastatin, Protonix. -monitor for hypoglycemia. -Glucometer checks before meals and at bedtime with 1/2 insulin regular sliding scale p.r.n.. -Monitor renal and liver function. -Monitor electrolytes and treat accordingly. -DVT and GI prophylaxis: Heparin and Protonix -Pending CT PE protocol and bilat venous dropper of lower extremities. All tests came back negative. This plan has been reviewed and approved by my attending, Dr. Josep Aguilar. JOSEP AGUILAR MD January 29, 2025 14:02
[2025-01-29] MEDS ORDERED: TIRZ5PEN SQ (14:16)
[2025-01-29] MEDS ORDERED: ATOR40TA69 PO (14:19)
[2025-01-29] MEDS ORDERED: CLOP-31 PO (14:19)
[2025-01-29] MEDS ORDERED: LISI10TA24 PO (14:19)
[2025-01-29] MEDS ORDERED: PANT40TA54 PO (14:19)
[2025-01-29] MEDS ORDERED: MONT-46 PO (14:19)
[2025-01-29] MEDS: ISOSORBIDE MONO 30MG SR TAB PO SCH (14:25)
[2025-01-29] MEDS ORDERED: LEVO100C5 PO (14:53)
[2025-01-29] MEDS ORDERED: LEVO88CA5 PO (14:53)
[2025-01-29] MEDS: LACTULOSE 20 GM/30 ML UDCUP PO PRN (17:39)
[2025-01-29] MEDS: MAGNESIUM 2GM PREMIX 50ML 50 ML IV PRN (20:33)
[2025-01-29] MEDS: carVEDIlol 3.125 MG TABLET PO SCH (20:34)
[2025-01-30] VITALS: BP 107/57; PULSE 74; RESP 20; TEMP 97.8
[2025-01-30 04:00] VITALS: BP 116/63; PULSE 69; RESP 19; TEMP 97.8
--- NOTE | 2025-01-30 07:55 | PN ---
[facility] CARDIOLOGY PROGRESS NOTE Cardiology progress note dictated for Cosme Dickson MD Date Patient Seen: January 30, 2025 Interval History: This is a 54-year-old female with a past medical history of hypertension, dyslipidemia, diabetes mellitus type 2, hypothyroidism, CAD s/p PTCA to a chronically occluded OM 1 vessel and PTCA and stent of the mid LAD with a 2.5 x 24 mm [employer] Promus elite drug-eluting stent on 07/16/2021, for recurrent chest pain, with follow-up cardiac catheterization on 08/31/2021 demonstrated a patent mid LAD stent and nonobstructive coronary artery disease presented to the ER complaining of chest discomfort consistent with angina pectoris. She ruled out for a myocardial infarction by serial cardiac troponins. Her chest discomfort was associated with diaphoresis and dyspnea and was relieved and route to the hospital in the EMS after a 2nd nitroglycerin. Total chest discomfort lasted less than 30m. Troponin of 11, 12, and 19. EKG demonstrated normal sinus rhythm with a heart rate of 66 bpm with a LAFB and RBBB. D-dimer was elevated at 527. CT of the chest was negative for pulmonary embolism. Bilateral lower extremity venous Doppler was negative for DVT. The patient was initiated on isosorbide mono ER 60 mg daily and beta-gayle therapy and has had no recurrent chest discomfort. She was scheduled for a Lexiscan Cardiolite stress test 01/29/2025, but due to equipment malfunction the patient will be discharged home to schedule a Lexiscan Cardiolite stress test as an outpatient. Physical Examination: GENERAL: No acute distress. HEAD: Normal with no signs of head trauma. EYES: PERRLA, EOMI, conjunctiva and sclera normal. NECK: Supple without JVD. There is no tenderness, lymphadenopathy, or masses. No thyromegaly. Normal carotid upstrokes without bruits. LUNGS: Clear breath sounds bilaterally. No wheezes, or rhonchi. HEART: Normal rate and rhythm. Normal S1 and S2 without murmurs, gallop or rub. VASC: Peripheral pulses +2 bilaterally. EXT: No clubbing, cyanosis or edema. NEURO: Awake, alert, and oriented x3. No focal neurological deficits noted. Laboratory: Hematology Labs: Test 01/29/25 05:27 Range/Units White Blood Count 5.5 4.8-10.8 K/uL Red Blood Count 3.75 L 4.00-5.50 MIL/uL Hemoglobin 11.1 L 12.0-16.0 g/dL Hematocrit 33.7 L 36-48 % Mean Corpuscular Volume 89.9 79-99 fL Mean Corpuscular Hemoglobin 29.6 27.0-33.0 pg Mean Corpuscular Hemoglobin Concent 32.9 32.0-36.0 g/dL Red Cell Distribution Width 13.3 11.0-15.5 % Platelet Count 249 130-400 K/uL Mean Platelet Volume 9.7 7.5-10.5 fL Immature Granulocyte % (Auto) 0.0 0-1 % Neutrophils (%) (Auto) 32.6 L 40.0-77.0 % Lymphocytes (%) (Auto) 48.7 21.0-51.0 % Monocytes (%) (Auto) 8.0 3.0-13.0 % Eosinophils (%) (Auto) 10.0 H 0.0-8.0 % Basophils (%) (Auto) 0.7 0.0-5.0 % Neutrophils # (Auto) 1.8 1.8-7.7 K/uL Lymphocytes # (Auto) 2.7 1.0-4.8 K/uL Monocytes # (Auto) 0.4 0.1-1.0 K/uL Eosinophils # (Auto) 0.55 0.00-0.70 K/uL Basophils # (Auto) 0.04 0.00-0.20 K/uL Absolute Immature Granulocyte (auto 0.00 0-1 K/uL Nucleated Red Blood Cells 0.0 0.0-0.19 % Chemistry Labs: Test 01/30/25 05:40 01/29/25 05:27 Range/Units Whole Blood Glucose 92 70-110 MG/DL Sodium Level 140 136-145 mmol/L Potassium Level 4.7 3.5-5.1 mmol/L Chloride Level 107 101-111 mmol/L Carbon Dioxide Level 29 21-32 mmol/L Blood Urea Nitrogen 10 7-18 mg/dL Creatinine 0.2 L 0.5-1.0 mg/dL Glomerular Filtration Rate Calc 139 >90 mL/min Random Glucose 95 70-105 mg/dL Lactic Acid Level 1.5 0.8-2.5 mmol/L Total Calcium 8.9 8.5-10.1 mg/dL Total Bilirubin 0.2 0.2-1.0 mg/dL Aspartate Amino Transf (AST/SGOT) 25 10-37 U/L Alanine Aminotransferase (ALT/SGPT) 42 12-78 U/L Alkaline Phosphatase 82 50-136 U/L Total Protein 6.7 6.0-8.3 g/dL Albumin 3.1 L 3.5-5.0 g/dL Diagnostics / Radiology: 2D echocardiogram on 01/28/2025 Conclusion LVEF is 60-65%. Stage II, diastolic dysfunction. Global strain of -19%. DICTATED BY: AIDAN VILLALTA MD DATE: 01/28/25 0808 Impression and Plan: Unstable Angina pectoris: CAD status post remote PTCA and stenting of the mid LAD 07/16/2021 with a 2.5 x 24 mm [employer] Promus elite MARQUITA and balloon angioplasty to a chronically occluded OM1 with follow-up cardiac catheterization 08/31/2021 demonstrating a widely patent stent and a 50% stenosis at the balloon angioplasty site at the mid to distal OM1: Troponin of 11, 12, and 19, EKG with no acute ST changes and a RBBB: -Continue atorvastatin 40 mg nightly, clopidogrel 75mg daily, lisinopril 10 mg daily, begin metoprolol succinate ER 50 mg daily, and begin isosorbide mono ER 60 mg p.o. daily -Follow-up with Dr. Shirley Dickson in 7-[address] [facility], plan for outpatient Lexiscan stress test, assess response to initiation of metoprolol and isosorbide mono ER ASPIRIN ALLERGIC: -continue clopidogrel 75 mg p.o. daily Normochromic normocytic anemia with hemoglobin of 11.1: -obtain iron studies, B12, and folic acid level and follow up as an outpatient 2D echo on 01/28/2025 with an EF of 60-65%, stage II diastolic dysfunction, and a global strain of -19% Comorbidities: Hypertension Dyslipidemia Diabetes mellitus type 2 Hypothyroidism CAD s/p PTCA to a chronically occluded OM 1 vessel and PTCA and stent of the mid LAD with a 2.5 x 24 mm [employer] Promus elite drug-eluting stent on 07/16/2021 CAD with follow up cardiac catheterization on 08/31/2021 demonstrated a patent mid LAD stent Negative standard Wade protocol treadmill stress test on 01/02/2023 Aspirin Allergy PHYSICIAN ATTESTATION OF PHYSICIAN POULTRY INSEMINATOR DOCUMENTATION: I attest that I was physically present for the otto portions of the service and evaluated the patient with the Physician Security Controls Assessor, and I reviewed and discussed the case with the Physician Security Controls Assessor and made modifications to the Physician Security Controls Assessor's findings and plans of care as documented above AZEB BRENE January 30, 2025 07:55 COSME DICKSON MD January 30, 2025 13:09
[2025-01-30 08:06] VITALS: BP 136/77; PULSE 72; RESP 20; TEMP 98.4
[2025-01-30 08:50] VITALS: O2SAT 100
[2025-01-30 11:32] VITALS: BP 132/78; PULSE 66; RESP 18; TEMP 98.3
[2025-01-30] MEDS ORDERED: METO-391 PO (12:58)
[2025-01-30] MEDS ORDERED: ISOS60TA77 PO (12:58)
[2025-01-30] MEDS ORDERED: NITRS4 SL (12:58)
[2025-01-30 13:39] LABS: % IRON SATURATION 30.8 % (22-44)
--- NOTE | 2025-01-30 15:16 | DS ---
Discharge Summary Hospital Course Summary: This is a 54-year-old female with a past medical history of hypertension, dyslipidemia, diabetes mellitus type 2, hypothyroidism, CAD s/p PTCA to a chronically occluded OM 1 vessel and PTCA and stent of the mid LAD with a 2.5 x 24 mm [place] [employer] Promus elite drug-eluting stent on 07/16/2021, for recurrent chest pain, with follow-up cardiac catheterization on 08/31/2021 demonstrated a patent mid LAD stent and nonobstructive coronary artery disease presented to the ER complaining of chest discomfort consistent with angina pectoris. She ruled out for a myocardial infarction by serial cardiac troponins. Her chest discomfort was associated with diaphoresis and dyspnea and was relieved and route to the hospital in the EMS after a 2nd nitroglycerin. The patient was initiated on isosorbide mono ER 60 mg daily and beta-gayle therapy and has had no recurrent chest discomfort. She was scheduled for a Lexiscan Cardiolite stress test 01/29/2025, but due to equipment malfunction the patient will be discharged home to schedule a Lexiscan Cardiolite stress test as an outpatient. Drill Press Hand(s): Cardiology Assessment/Plan: ASSESSMENT: Acute chest pain with high risk cardiac etiology r/o ACS, x2 negative troponins Acute complicated cystitis, POA Anemia of chronic disease Electrolyte derangement (hyponatremia, hypochloremia) Acute kidney injury, GFR 60 Acute on chronic kidney disease stage 2, (GFR on 06/15- 08/15 range 67-76) Diabetes mellitus with hyperglycemia Proteinuria, glucosuria, ketonuria, hematuria, per UA 01/27/25 Chronic problem list: DM type 2, HTN, hypercholesteremia, hypothyroidism, CAD s /p heart stents PLAN: Patient was discharged in a stable condition and we will follow up with Cardiology for outpatient cardiac stress test Home Medications: Reported Medications Levothyroxine Sodium (Levothyroxine) 100 Mcg Capsule, 100 MCG PO FRI,FRI,FRI, CAP 01/29/25 Levothyroxine Sodium (Levothyroxine) 88 Mcg Capsule, 88 MCG PO M ,FRI ,FRI ,, CAP 01/29/25 Pantoprazole Sodium (Pantoprazole Sodium) 40 Mg Tablet.dr, 40 MG PO DAILY, TAB 01/29/25 Montelukast Sodium (Singulair 10Mg) 10 Mg Tab, 10 MG PO HS, TAB 01/29/25 Atorvastatin Calcium (LIPITOR) 40 Mg Tablet, 40 MG PO HS, TAB 01/29/25 Lisinopril (Lisinopril) 10 Mg Tablet, 10 MG PO DAILY, TAB 01/29/25 Clopidogrel Bisulfate (Plavix) 75 Mg Tablet, 1 TAB PO DAILY for 30 Days, #30 TAB 0 Refills 01/29/25 Tirzepatide (Mounjaro) 5 Mg/0.5 Ml Pen.injctr, 5 MG SQ WEEKLY 01/29/25 Discontinued Reported Medications Loratadine (Loratadine) 10 Mg Tablet, 10 MG PO DAILY, TAB 08/30/21 Sitagliptin Phosphate (Januvia) 100 Mg Tablet, 100 MG PO DAILY, TAB 08/30/21 Lisinopril (Lisinopril) 40 Mg Tablet, 40 MG PO DAILY, TAB 08/30/21 Levothyroxine Sodium (Levothyroxine Sodium) 100 Mcg Tablet, 100 MCG PO DAILY, TAB 08/30/21 Albuterol Sulfate (Albuterol Sulfate) 1.25 Mg/3 Ml Vial.neb, 108 MCG IH Q4PRN, INH 08/30/21 Empagliflozin/Metformin HCl (Synjardy 12.5-1,000 mg Tablet) 1 Each Tablet, 1 EACH PO BID, TAB 07/13/21 Nitroglycerin (Nitroglycerin) 0.4 Mg Tab.subl, 0.4 MG SL AD PRN for CHEST PAIN, TAB.SL 07/13/21 Amlodipine Besylate (Amlodipine Besylate) 5 Mg Tablet, 5 MG PO DAILY, TAB 07/13/21 Levothyroxine Sodium (Levothyroxine) 100 Mcg Capsule, 100 MCG PO DAILY, CAP 07/13/21 Ergocalciferol (Vitamin D2) (Vitamin D2) 1,250 Mcg Capsule, 1250 MCG PO QWEEK, CAP 07/13/21 Sitagliptin Phosphate (Januvia) 100 Mg Tablet, 100 MG PO DAILY, TAB 07/13/21 Carvedilol (Carvedilol) 12.5 Mg Tablet, 12.5 MG PO BID, TAB 07/13/21 Montelukast Sodium (Montelukast Sodium) 10 Mg Tablet, 10 MG PO HS, TAB 07/13/21 Glimepiride (Glimepiride) 2 Mg Tablet, 2 MG PO BID, TAB 07/13/21 Lisinopril (Lisinopril) 40 Mg Tablet, 40 MG PO DAILY, TAB 07/13/21 Omeprazole (Omeprazole) 20 Mg Capsule.dr, 20 MG PO AD PRN for HEARTBURN, CAP 07/13/21 Discontinued Scripts Nitrofurantoin Macrocrystal (Nitrofurantoin) 100 Mg Capsule, 100 MG PO BID for 7 Days, #14 CAP Prov:JOSE ANTONIO TERRY 08/11/24 Diphenhydramine HCl (Benadryl) 50 Mg Cap, 25 MG PO TID PRN for ALLERGIC REACTION for 10 Days, #30 CAP 0 Refills Prov:FABIO ALAMO MD 02/28/24 Lactobacillus Combination No.4 (Probiotic) 3 Billion Cell Capsule, 1 EACH PO DAILY, #14 CAP Prov:DARLIN FREED MD 11/24/23 Famotidine (Pepcid) 20 Mg Tablet, 20 MG PO Q12H, #28 TAB Prov:DARLIN FREED MD 11/24/23 Ondansetron (Ondansetron Odt) 4 Mg Tab.rapdis, 4 MG SL Q4HPRN PRN for nausea/vomiting, #10 TAB Prov:DARLIN FREED MD 11/24/23 Acetaminophen (Acetaminophen) 500 Mg Tablet, 1000 MG PO Q6HPRN PRN for fever/pain, #24 TAB Prov:DARLIN FREED MD 11/24/23 Sulfamethoxazole/Trimethoprim (Bactrim Ds Tablet) 1 Each Tablet, 1 TAB PO BID for 5 Days, #10 TAB 0 Refills Prov:CHELSEA MONTENEGRO MD 01/01/23 Pantoprazole Sodium (Pantoprazole Sodium) 40 Mg Granpkt., 40 MG PO DAILYBKFST, #15 PACK Prov:CHELSEA MONTENEGRO MD 01/01/23 Atorvastatin Calcium (Atorvastatin Calcium) 40 Mg Tablet, 40 MG PO HS, #30 TAB 1 Refill Prov:GALINDO RHODES MD 09/01/21 Ticagrelor (Brilinta) 90 Mg Tablet, 90 MG PO BID, #60 TAB 2 Refills Prov:GALNIDO RHODES MD 09/01/21 Nitrofurantoin Monohyd/M-Cryst (Macrobid 100 mg Capsule) 100 Mg Capsule, 100 MG PO BID for 5 Days, #10 CAP 0 Refills Prov:GALINDO RHODES MD 09/01/21 Time spent arranging discharge: 31-60 minutes MICHELLE MARINELLI MD January 30, 2025 15:16
--- NOTE | 2025-01-30 17:29 | NUR ---
discharge antibiotic Called Josep Ko about discharge antibiotic. Order received for levaquin 500mg po daily. Called into [facility] (preferred pharmacy) per Dr. Fernandez order.
--- NOTE | 2025-01-30 17:30 | NUR ---
DISCHARGE Patient provided discharge instructions including medication information and follow up information. All questions answered. IV and tele removed. patient discharged home with family.
--- NOTE | 2025-02-01 13:28 | NUR ---
Transitional Phone Call Spoke with patient, states feeling "a little exhausted and doing better." State has her new prescription medications; denies questions or concerns. States called cardiology - Dr. Dickson office and they will be calling to set up an appointment for this week; and, will call to set up an appointment with PCP as well. No questions or concerns at this time.
== END 2025-01-30 17:25 | disposition home or self-care (01) | DRG 303 ==
LOC: EEVIPCON 16:10 → EDH 16:10 → EDHIP 18:27 → 4DH 22:50
PROVIDERS: ADMIT Internal Medicine; ATTEND Internal Medicine
DX: I25.110 Atherosclerotic heart disease of native coronary artery with unstable angina pectoris (principal); N30.00 Acute cystitis without hematuria; E87.1 Hypo-osmolality and hyponatremia; N17.9 Acute kidney failure, unspecified; E78.00 Pure hypercholesterolemia, unspecified; E11.65 Type 2 diabetes mellitus with hyperglycemia; I12.9 Hypertensive chronic kidney disease with stage 1 through stage 4 chronic kidney disease, or unspecified chronic kidney disease; N18.2 Chronic kidney disease, stage 2 (mild); E03.9 Hypothyroidism, unspecified; E11.22 Type 2 diabetes mellitus with diabetic chronic kidney disease; E87.8 Other disorders of electrolyte and fluid balance, not elsewhere classified; D63.1 Anemia in chronic kidney disease; Z82.49 Family history of ischemic heart disease and other diseases of the circulatory system; Z83.3 Family history of diabetes mellitus; Z95.5 Presence of coronary angioplasty implant and graft; Z79.02 Long term (current) use of antithrombotics/antiplatelets; Z90.411 Acquired partial absence of pancreas; Z90.710 Acquired absence of both cervix and uterus; Z79.899 Other long term (current) drug therapy
CPT/HCPCS: 36415; 71045; 71270; 80048; 80053; 80305; 81001; 82607; 82728; 82746; 82948; 83036; 83540; 83550; 83605; 83735; 83880; 84100; 84443; 84484; 85025; 85378; 87086; 87186; 93005; 93306; 93970; 99285; G0378; J1644; J1956; J2470; J3475; Q9967

== ENCOUNTER → 2025-03-10 | Outpatient (CLI) | payer OTHER ==
[~2025-03-10] MED LIST changes: -ACET-66 PO; -ALBU1.252 IH; -AMLO-257 PO; +ATOR40TA69 PO; -ATOR40TA71 PO; -CARV12.511 PO; +CLOP-31 PO; -DIPH50 PO; -EMPA1TAB7 PO; -ERGO500093 PO; -FAMO-136 PO; -GLIM2TAB30 PO; +ISOS60TA77 PO; -LACT1CAP81 PO; -LEVO100T12 PO; +LEVO88CA5 PO; +LISI10TA24 PO; -LISI40TA9 PO; -LORA10TA7 PO; +METO-391 PO; -MONT-39 PO; +MONT-46 PO; -NITR0.4T50 SL; -NITR100C PO; -NITR100C4 PO; +NITRS4 SL; -OMEP20CA12 PO; -ONDA-243 SL; -PANT40GR PO; +PANT40TA54 PO; +REGADENOSON 0.4 MG/5 ML PF SYG IVP ONE; -SITA100T12 PO; -SULF1TAB42 PO; -TICA90TA PO; +TIRZ5PEN SQ
--- NOTE | 2025-03-10 17:26 | HMCSR ---
APPROVED REPORT TEST INDICATIONS Chest Pain The imaging protocol used to acquire images was Rest Tc-99m/stress Tc-99m 1 day Consent: The procedure was explained and understood by the patient. Informerd consent was witnessed MYRON Foster First, low dose rest was performed then high dose stress. RESTING DATA: The resting ekg shows: NSR Rest SPECT myocardial perfusion imaging was performed in supine position minutes following the intra venous injection of 11 mCi of Tc-99 Sestamibi. Time of rest injection: 09 Date: 03/10/2025 PHARMACOLOGIC STRESS: Pharmacologic stress test was performed by injecting regadenoson 0.4 mg IV push followed by the intra venous injection of 26 mCi of Tc-99 Sestamibi. Time of stress injection: 1249 Date: 03/10/2025 Heart Rate at time of stress injection: 72 bpm. The images were gated to evaluate regional wall motion and calculate left ventricular ejection fracti on. STRESS DETAILS Reason for Termination: Infusion complete Stress Symptoms: Dyspnea, Chest Pressure Max HR Achieved: 120 bpm % of APMHR Achieved: 85 Max Blood Pressure: 139/77 mmHg Stress ECG: NSR Study quality was good. Lung uptake was Normal. Artifact: No artifact IMPRESSION Normal pharmacologic nuclear stress test. Conclusion Normal perfusion. Normal TID 1.17. LVEF 69%.
== END | disposition home or self-care (01) ==
LOC: RAH 08:33
PROVIDERS: ATTEND Internal Medicine Cardiovascular Disease
DX: R07.9 Chest pain, unspecified (principal); R06.00 Dyspnea, unspecified
CPT/HCPCS: 78452; 93017; J2785; A9500 ×4